=== PATIENT | male | born 1970 | race Caucasian/White ===

== ENCOUNTER → 2018-10-01 | Outpatient (CLI) | payer OTHER, MEDICARE ==
[2018-10-01 15:04] VITALS: BP 161/92; PULSE 48; TEMP 98.1; BMI 36.6
--- NOTE | 2018-10-01 15:48 | P.HPBAR ---
Bariatric H&P - History & Physicial H&P Date: 10/01/18 History & Physicial: Visit/CC: panniculectomy consult Patient initial contact: Initial weight: 147.418 kg Initial weight in pounds: 325.00 Height: 5 ft 11 in Initial BMI: 45.3 Last weight: Current weight: 119.295 kg Current weight in pounds: 263.00 Current BMI: 36.6 [place] body weight (based on NIH guidelines): 78.018 kg Excess body weight loss: 40.5% The patient is a 48 year-old M who presents for Bariatric Assessment. HPI: Highest 325 pounds. He has history of umbilical hernia surgery. Never had a weight loss procedure on his own. He has lost weight on his own. He is working out. He reports back. Current weight 263 pounds. His lowest 223 pounds the last 3 years. ABDOMEN: Has assymmetric fat distribution of the of the right chest wall. Pannus of 10-pounds. ASSESSMENT: 1. Pannicultis PLAN: 1. Nystatin powder 2. CT scan of abdomen of abdominal wall tumor, deep subcutaneous. Past Medical History Past Medical History: GERD/Reflux, Hypertension Additional Past Medical History / Comment(s): vertigo, white brain matter disease History of Any Multi-Drug Resistant Organisms: None Reported Past Surgical History: Hernia Repair Additional Past Surgical History / Comment(s): Umbilical hernia repair, right shoulder arthroscopy (arthritis/bone spurs), right knee meniscus surgery, deviated septum procedure in office d/t nose bleed, colonoscopy x3 (has this performed q5 years d/t precancerous polyps). Past Anesthesia/Blood Transfusion Reactions: No Reported Reaction, Motion Sickness Additional Past Anesthesia/Blood Transfusion Reaction / Comm: No blood transfusion to date, Smoking Status: Former smoker - Past Family History Mother Additional Family Medical History / Comment(s): hypoglycemia, dizzy spells, Father Family Medical History: Diabetes Mellitus Additional Family Medical History / Comment(s): Type 2 DM, Sister(s) Additional Family Medical History / Comment(s): sister #1: Chrohn's Disease. Sister #2,3,&4: stomach problems Surgical - Exam Vital Signs Temp Pulse BP 98.1 F 48 L 161/92 10/01/18 14:52 10/01/18 14:52 10/01/18 14:52 Bariatric Checklist Checklist: Plan: Checklist: EGD: 1. Hiatal hernia: 2. H. Pylori: HgbA1c: Vitamin D: Smoking: Former smoker Primary care physician referral: [facility] Psychiatry clearance: Cardiology clearance: Sleep study: Diet journal: VTE risk score: VTE risk level: Rehab needs at discharge:
== END | disposition home or self-care (01) ==
LOC: BARWHC3 14:07
PROVIDERS: ATTEND Surgery Plastic and Reconstructive Surgery
DX: M79.3 Panniculitis, unspecified (principal); Z87.891 Personal history of nicotine dependence; Z98.890 Other specified postprocedural states
CPT/HCPCS: 99201

== ENCOUNTER → 2018-10-10 | Outpatient (CLI) | payer OTHER, MEDICARE ==
--- NOTE | 2018-10-10 14:10 | CT ---
EXAMINATION TYPE: CT abdomen wo con DATE OF EXAM: 10/10/2018 COMPARISON: None HISTORY: Pre op sleeve CT DLP: 1038 mGycm Automated exposure control for dose reduction was used. TECHNIQUE: Helical acquisition of images was performed from the lung bases through the top of iliac crest to include entire abdomen. CONTRAST: Performed without Oral Contrast and without IV contrast. FINDINGS: In length of intravenous and oral contrast limit evaluation of both the hollow and solid vi scera. LUNG BASES: There is a left lower lobe pulmonary nodule measuring 8 mm. LIVER/GB: Unremarkable unenhanced morphology of the liver. No radiopaque calculi within the gallbladd er. PANCREAS: No significant abnormality is seen. SPLEEN: Splenomegaly is incidentally noted with the greatest longitudinal dimension of the spleen rambo suring 16.2 cm. ADRENALS: No focal thickening or nodularity. KIDNEYS: Retroaortic left renal vein is incidentally noted. Kidneys demonstrate no evidence of hydron ephrosis nor nephrolithiasis. BOWEL: No dilated large or small bowel. Large amount of debris within the stomach from ingested mate rial. LYMPH NODES: No significant abnormality is appreciated. OSSEOUS STRUCTURES: Mild multilevel degenerative changes of the spine. FREE AIR: No free air is visualized. IMPRESSION: 1. THERE IS A SOLID 8 MM LEFT LOWER LOBE PULMONARY NODULE. CT OF THE CHEST IS RECOMMENDED FOR FULL EV ALUATION. 2. INCIDENTALLY NOTED SPLENOMEGALY.
== END | disposition home or self-care (01) ==
LOC: RADCTMAIN 13:12
PROVIDERS: ATTEND Surgery Plastic and Reconstructive Surgery
DX: R16.1 Splenomegaly, not elsewhere classified (principal)
CPT/HCPCS: 74150

== ENCOUNTER → 2020-05-04 | Outpatient (CLI) | payer MEDICARE, OTHER ==
[2020-05-04 15:25] VITALS: BP 148/89; PULSE 72; RESP 18; TEMP 98.7; BMI 44.6
--- NOTE | 2020-05-04 16:04 | P.HPBAR ---
Bariatric H&P - History & Physicial H&P Date: 05/04/20 History & Physicial: Visit/CC: follow up Patient initial contact: Initial weight: 147.418 kg Initial weight in pounds: 325.00 Height: 5 ft 11 in Initial BMI: 45.3 Last weight: Current weight: 145.15 kg Current weight in pounds: 320.00 Current BMI: 44.6 [place] body weight (based on NIH guidelines): 78.018 kg Excess body weight loss: 3.2% The patient is a 50 year-old M who presents for Bariatric Assessment. DATE OF SERVICE: 05/04/2020 CHIEF COMPLAINT: Morbid obesity HISTORY OF PRESENT ILLNESS: Christo Cortes is a 50-year-old male who comes at his highest weight since evaluation at the bariatric center. He presents for brenna luation for weight loss. He is seeing a lung doctor. He comes in with left lower quadrant pain which is new. He reports troubles with swallowing. He is pending medical supervised weight loss surveillance. At height of 5 foot, 11 inches, ideal body weight is 178 pounds. His highest weight was 325 pounds, BMI 45.4. Today he comes in 319 pounds from 301 pounds, 4 months ago. He has gained 18 pounds in 4 months. His body mass index is 44.6. PAST MEDICAL HISTORY: 1. Morbid obesity due to excess calories, BMI 45.4 2. Hyperlipidemia 3. Depressive disorder 4. Hypertensive heart disease 5. Vertigo 6. White brain matter disease 7. Anxiety 8. Panniculitis. 9. Coronary artery disease PAST SURGICAL HISTORY: 1. Umbilical hernia repair 2. Right shoulder arthroscopy 3. Right knee surgery 4. Colonoscopy 5. Heart catheterization. 6. Left shoulder arthroscopy 7. Deviated septum repair 8. Bilateral hand surgery MEDICATIONS: Home Medications Medication Instructions Recorded Confirmed Omeprazole [PriLOSEC] 40 mg PO DAILY 10/01/18 10/01/18 buPROPion XL [Wellbutrin XL] 150 mg PO DAILY 10/01/18 10/01/18 Aspirin 81 mg PO DAILY 10/13/18 10/13/18 Atorvastatin [Lipitor] 10 mg PO DAILY 10/13/18 10/13/18 Cholecalciferol (Vitamin D3) 2,000 unit PO DAILY 10/13/18 10/13/18 [Vitamin D3] EPINEPHrine (Auto Inject) [Epipen] 1 injection IM DIRECTED 10/13/18 10/13/18 Escitalopram [Lexapro] 10 mg PO DAILY 10/13/18 10/13/18 Gemfibrozil [Lopid] 600 mg PO DAILY 10/13/18 10/13/18 LORazepam [Ativan] 0.5 mg PO DAILY 10/13/18 10/13/18 prednisoLONE ACETATE 1% OPHTH 1 drop BOTH EYES QID 10/13/18 10/13/18 [Pred Forte 1%] Previous Rx's Medication Instructions Recorded Nystatin 100,000 Unit/gm Powd 1 applic TOPICAL BID #60 powder 10/01/18 [Mycostatin Powder] ALLERGIES: Denies. SOCIAL HISTORY: Past tobacco use FAMILY HISTORY: Pertinent for morbid obesity. REVIEW OF SYSTEMS: CONSTITUTIONAL: Highest weight of 325 pounds. Highest body mass index of 45.4. [place] body weight of 178 pounds of 5 foot 11. MUSCULOSKELETAL: Reports lower back pain from weight of pannus. GASTROINTESTINAL: Has gastroesophageal reflux disease is resolved. No reports of dumping syndrome. PSYCH: Has anxiety and depression CARDIOVASCULAR: Has hypertensive medications. Medications for dyslipidemia. Past heart catheterization with stent HEENT: No dysphagia. No troubles with vision or hearing. HEMATOLOGIC: No DVTs. Also has history of lupus in his family. ENDOCRINE: Denies any diabetes. No thyroid disorder. CARDIOVASCULAR: Denies any heart attack or recent chest pain. RESPIRATORY: Has obstructive sleep apnea. No reports of asthma. NEURO: Denies any stroke or seizure disorders. SKIN: Chronic panniculitis. No skin cancer. PHYSICAL EXAM: VITAL SIGNS: 5 foot 11, 319 pounds. Body mass index is 44.6 GENERAL: Well-developed male in no acute distress. ABDOMEN: Soft, non-tender, non-distended. HEENT: Hears conversational speech. Moist buccal mucosa. Extraocular movements were grossly intact. No nasal drainage. NECK: Supple without lymphadenopathy. CHEST: Unlabored respirations, equal bilateral excursions. CARDIOVASCULAR: Regular rate and rhythm. 2+ radial pulses. MUSCULOSKELETAL: Bilateral lower extremity edema with 1+. No clubbing cyanosis or edema. NEURO: No focal or lateralizing signs. Cranial nerves II-12 grossly intact. PSYCH: Appropriate affect. Alert and oriented to person, place, and time. SKIN: Well perfused. Good skin turgor. LABS: Reviewed. Platelets are low. Sodium is elevated. Triglycerides is elevated. EKG: Normal sinus rhythm. ASSESSMENT: 1. Morbid obesity due to excess calories, BMI 45.4 2. Hyperlipidemia 3. Depressive disorder 4. Hypertensive heart disease 5. Vertigo 6. White brain matter disease 7. Anxiety 8. Panniculitis. 9. Coronary artery disease 10. Thrombocytopenia 11. Hypernatremia 12. Left lower abdominal pain PLAN: 1. Recommend upper endoscopy. 2. Recommend food diary journal. 3. He has left lower quadrant pain with history of polyps. He is due for colonoscopy. Past Medical History Past Medical History: GERD/Reflux, Hypertension Additional Past Medical History / Comment(s): vertigo, white brain matter disease History of Any Multi-Drug Resistant Organisms: None Reported Past Surgical History: Heart Catheterization, Hernia Repair, Orthopedic Surgery Additional Past Surgical History / Comment(s): Umbilical hernia repair, right and left shoulder arthroscopy (arthritis/bone spurs), right knee meniscus surgery, deviated septum procedure in office d/t nose bleed, colonoscopy x3 (has this performed q5 years d/t precancerous polyps), right and left hand surgery Past Anesthesia/Blood Transfusion Reactions: No Reported Reaction, Motion Sickness Additional Past Anesthesia/Blood Transfusion Reaction / Comm: No blood transfusion to date, Past Psychological History: Anxiety, Depression Additional Psychological History / Comment(s): Takes Wellbutrin daily Smoking Status: Former smoker Past Alcohol Use History: Occasional Additional Past Alcohol Use History / Comment(s): smoked beginning at age 18 to early 30's, smoked 1-3 packs/day. Past Drug Use History: None Reported - Past Family History Mother Additional Family Medical History / Comment(s): hypoglycemia, dizzy spells, Father Family Medical History: Diabetes Mellitus Additional Family Medical History / Comment(s): Type 2 DM, Sister(s) Additional Family Medical History / Comment(s): sister #1: Chrohn's Disease. Sister #2,3,&4: stomach problems Surgical - Exam Vital Signs Temp Pulse Resp BP 98.7 F 72 18 148/89 05/04/20 15:18 05/04/20 15:18 05/04/20 15:18 05/04/20 15:18 Bariatric Checklist Checklist: Plan: Checklist: EGD: 1. Hiatal hernia: 2. H. Pylori: HgbA1c: Vitamin D: Smoking: Former smoker Primary care physician referral: [facility] Psychiatry clearance: Cardiology clearance: Sleep study: Diet journal: VTE risk score: VTE risk level: Rehab needs at discharge:
== END | disposition home or self-care (01) ==
LOC: BARWHC3 14:57
PROVIDERS: ATTEND Surgery Plastic and Reconstructive Surgery
DX: E66.01 Morbid (severe) obesity due to excess calories (principal); E78.5 Hyperlipidemia, unspecified; F32.9 Major depressive disorder, single episode, unspecified; I11.9 Hypertensive heart disease without heart failure; R42 Dizziness and giddiness; F41.9 Anxiety disorder, unspecified; M79.3 Panniculitis, unspecified; I25.10 Atherosclerotic heart disease of native coronary artery without angina pectoris; D69.6 Thrombocytopenia, unspecified; E87.0 Hyperosmolality and hypernatremia; R10.30 Lower abdominal pain, unspecified; Z79.82 Long term (current) use of aspirin; Z79.899 Other long term (current) drug therapy; Z79.891 Long term (current) use of opiate analgesic
CPT/HCPCS: 99211

== ENCOUNTER 2020-06-06 08:38 | Day surgery (SDC) | payer MEDICARE ==
[2020-06-01 12:00] VITALS: BMI 44.1
--- NOTE | 2020-06-06 05:47 | P.GSHP ---
History of Present Illness H&P Date: 06/06/20 CHIEF COMPLAINT: GERD and colon screen HISTORY OF PRESENT ILLNESS: The patient is a 67-year-old male who presents with dysphagia, gastroesophageal reflux disease and need for colon screen with history of polyps. Upper and lower endoscopy were offered for further evaluation and management. PAST MEDICAL HISTORY: Please see list. PAST SURGICAL HISTORY: Please see list. MEDICATIONS: Please see list. ALLERGIES: Please see list. SOCIAL HISTORY: No illicit drug use FAMILY HISTORY: No reports of Crohn disease or ulcerative colitis. REVIEW OF ORGAN SYSTEMS: CONSTITUTIONAL: No reports of fevers or chills. GI: Denies any blood in stools or constipation. PHYSICAL EXAM: VITAL SIGNS: Stable GENERAL: Well-developed pleasant in no acute distress. HEENT: No scleral icterus. Extraocular movements grossly intact. Moist buccal mucosa. NECK: Supple without lymphadenopathy. CHEST: Unlabored respirations. Equal bilateral excursions. CARDIOVASCULAR: Regular rate and rhythm. Distal 2+ pulses. ABDOMEN: Soft, nondistended. MUSCULOSKELETAL: No clubbing, cyanosis, or edema. ASSESSMENT: 1. Gastroesophageal reflux disease 2. Colon screen. 3. Dysphagia 4. History of polyps PLAN: 1. Recommend proceeding with an upper and lower endoscopy Past Medical History Past Medical History: GERD/Reflux, Hypertension Additional Past Medical History / Comment(s): vertigo, white brain matter disease History of Any Multi-Drug Resistant Organisms: None Reported Past Surgical History: Heart Catheterization, Hernia Repair, Orthopedic Surgery Additional Past Surgical History / Comment(s): Umbilical hernia repair, right and left shoulder arthroscopy (arthritis/bone spurs), right knee meniscus surgery, deviated septum procedure in office d/t nose bleed, colonoscopy x3 (has this performed q5 years d/t precancerous polyps), right and left hand surgery Past Anesthesia/Blood Transfusion Reactions: No Reported Reaction, Motion Sickness Additional Past Anesthesia/Blood Transfusion Reaction / Comment(s): No blood transfusion to date, Smoking Status: Former smoker - Past Family History Mother Additional Family Medical History / Comment(s): hypoglycemia, dizzy spells, Father Family Medical History: Diabetes Mellitus Additional Family Medical History / Comment(s): Type 2 DM, Sister(s) Additional Family Medical History / Comment(s): sister #1: Chrohn's Disease. Sister #2,3,&4: stomach problems Medications and Allergies Home Medications Medication Instructions Recorded Confirmed Type Omeprazole [PriLOSEC] 20 mg PO DAILY 10/01/18 06/01/20 History buPROPion XL [Wellbutrin XL] 300 mg PO DAILY 10/01/18 06/01/20 History EPINEPHrine (Auto Inject) [Epipen] 1 injection IM DIRECTED 10/13/18 06/01/20 History lisinopriL [Zestril] 20 mg PO DAILY 12/23/19 06/01/20 History Allergies Allergy/AdvReac Type Severity Reaction Status Date / Time bee venom protein (honey bee) Allergy Unknown Verified 06/01/20 11:56
[~2020-06-06 08:38] MED LIST: LACTATED RINGERS 1,000 ML IV SCH
[2020-06-06 09:32] VITALS: RESP 16; TEMP 97.5
[2020-06-06] MEDS ORDERED: LIDOCAINE 1% (10MG/ML) FOR IV START INTRADERMA ONE (09:43)
[2020-06-06] MEDS ORDERED: PROPOFOL 10 MG/ML 20 ML VIAL IV ONE (10:05)
--- NOTE | 2020-06-06 10:20 | P.PCN ---
Date of Procedure: 06/06/20 Description of Procedure: PREOPERATIVE DIAGNOSIS: Gastroesophageal reflux disease. Morbid obesity. POSTOPERATIVE DIAGNOSIS: Morbid obesity. Gastritis. Gastroesophageal reflux disease. OPERATION: Esophagogastroduodenoscopy with biopsies along antrum. SURGEON: Kylie Montemayor MD ANESTHESIA: MAC. INDICATIONS: The patient is a 50-year-old female who presents with a history of reflux disease. Benefits and risks of the procedure were described. Informed consent was obtained. DESCRIPTION: The patient was brought into the endoscopy suite and laid in the left lateral decubitus position. An Olympus gastroscope was passed along the posterior oropharynx down to the distal esophagus where the squamocolumnar junction was encountered at 40 cm from the incisors. The stomach was entered and no bile reflux was found. Additional findings are listed below. Biopsies with cold forceps were obtained of the antrum. The first through third portion of the duodenum was examined and unremarkable. Retroflexion of the scope confirmed Hill grade 2 lower esophageal valve. The squamocolumnar junction demonstrated LA grade A erosive esophagitis. The stomach was desufflated. The patient tolerated the procedure well. FINDINGS: Squamocolumnar junction 40 cm from the incisors. Diaphragmatic hiatus at 40 cm. Hill grade 2 lower esophageal valve. LA grade A erosive esophagitis. No active duodenitis. Chronic gastritis RECOMMENDATIONS: Upper endoscopy as needed.
--- NOTE | 2020-06-06 10:45 | P.PCN ---
Date of Procedure: 06/06/20 Description of Procedure: PREOPERATIVE DIAGNOSIS: Personal history of colon polyps Family history colon polyps Colonoscopy screening POSTOPERATIVE DIAGNOSIS: Ascending colon polyp Mid transverse colon polyp Internal hemorrhoids, grade 2 OPERATION: Colonoscopy to the ileocecal valve and appendiceal orifice, cecum Colonoscopy with cold forceps biopsy SURGEON: Kylie Montemayor MD. ANESTHESIA: MAC. INDICATIONS: The patient is an 50-year-old male who presents family history of colon polyps and personal history of colon polyps. Last colonoscopy over 5 years. Benefits and risks were described and informed consent was obtained. DESCRIPTION OF PROCEDURE: The patient had undergone Sutab prep. The patient had been brought into the operating room and laid in the left lateral decubitus position. After adequate intravenous sedation, the rectum was examined with 2% lidocaine jelly. The prostate was unremarkable. No external hemorrhoids were encountered. The rectal tone was within normal limits. No lesions were palpated in the rectal vault. An Olympus colonoscope was advanced until the cecum, ileocecal valve and appendiceal orifice were clearly viewed. The prep was good. No sigmoid diverticulosis was encountered. Colonic polyps were found and removed. No evidence of focal colitis was found. Retroflexion of the scope demonstrated grade 2 internal hemorrhoids without active bleeding or inflammation. The colon was desufflated. The patient had tolerated the procedure well. Withdrawal time was over 6 minutes. FINDINGS: Aronchick preparation quality scale 2 (1-5) Internal hemorrhoids, grade 2 No external hemorrhoids No arteriovenous malformations. No sigmoid diverticulosis Removal of 2 polyps: - Cold forceps biopsy at mid transverse colon, 4 mm polyp. - Cold forceps biopsy at distal ascending colon, 5 mm polyp. No focal colitis. RECOMMENDATIONS: Repeat colonoscopy in 3 years, 2023 Plan - Discharge Summary Discharge Rx Participant: No New Discharge Prescriptions: Continue buPROPion XL [Wellbutrin XL] 300 mg PO DAILY Omeprazole [PriLOSEC] 20 mg PO DAILY EPINEPHrine (Auto Inject) [Epipen] 1 injection IM DIRECTED lisinopriL [Zestril] 20 mg PO DAILY Discharge Medication List Omeprazole [PriLOSEC] 20 mg PO DAILY 10/01/18 [History] buPROPion XL [Wellbutrin XL] 300 mg PO DAILY 10/01/18 [History] EPINEPHrine (Auto Inject) [Epipen] 1 injection IM DIRECTED 10/13/18 [History] lisinopriL [Zestril] 20 mg PO DAILY 12/23/19 [History] Follow up Appointment(s)/Referral(s): [facility] [NON-STAFF] - 06/15/20 Patient Instructions/Handouts: Colorectal Polyps (DC), *Surgery [facility] - (Anesthesia) Endoscopy Discharge Instructions, Colonoscopy (DC) Activity/Diet/Wound Care/Special Instructions: Repeat colonoscopy in 3 years, 2023 Discharge Disposition: HOME SELF-CARE
[2020-06-06 10:58] VITALS: BP 115/69
[2020-06-06 11:12] VITALS: PULSE 67
== END 2020-06-06 11:22 | disposition home or self-care (01) ==
LOC: ORWHC2ENDO 08:38
PROVIDERS: ATTEND Surgery Plastic and Reconstructive Surgery
DX: Z12.11 Encounter for screening for malignant neoplasm of colon (principal); K63.5 Polyp of colon; K64.1 Second degree hemorrhoids; K29.50 Unspecified chronic gastritis without bleeding; K21.00 Gastro-esophageal reflux disease with esophagitis, without bleeding; K22.10 Ulcer of esophagus without bleeding; E66.01 Morbid (severe) obesity due to excess calories; I10 Essential (primary) hypertension; R90.82 White matter disease, unspecified; M19.012 Primary osteoarthritis, left shoulder; M19.011 Primary osteoarthritis, right shoulder; Z68.41 Body mass index [BMI] 40.0-44.9, adult; Z86.010 Personal history of colon polyps; Z98.890 Other specified postprocedural states; Z87.898 Personal history of other specified conditions; Z87.891 Personal history of nicotine dependence; Z79.899 Other long term (current) drug therapy; Z91.030 Bee allergy status; Z83.71 Family history of colonic polyps; Z83.49 Family history of other endocrine, nutritional and metabolic diseases; Z82.0 Family history of epilepsy and other diseases of the nervous system; Z83.3 Family history of diabetes mellitus; Z83.79 Family history of other diseases of the digestive system
CPT/HCPCS: 88305; 45380; 43239; J2704

== ENCOUNTER → 2020-06-15 | Outpatient (CLI) | payer MEDICARE ==
[2020-06-15 15:51] VITALS: BP 154/103; PULSE 71; RESP 18; TEMP 98.4; BMI 44.9
--- NOTE | 2020-06-15 16:19 | P.PN ---
Subjective Progress Note Date: 06/15/20 DATE OF SERVICE: 06/15/2020 CHIEF COMPLAINT: Morbid obesity HISTORY OF PRESENT ILLNESS: Christo Cortes is a 50-year-old male with lifelong history of morbid obesity. He has been undergoing medical supervised weight loss. He has over 60 pound weight gain in 8 months. No reports of nausea or vomiting. He has worsening gastroesophageal reflux disease. He presents here for evaluation of morbid obesity. At height of 5 foot, 11 inches, ideal body weight is 178 pounds. His highest weight was 325 pounds, BMI 45.4. Today he comes in 321 pounds from 319 pounds, 1 month ago. He has gained 2 pounds in 1 month. His body mass index is 44.9. He is 143 pounds overweight. PAST MEDICAL HISTORY: 1. Morbid obesity due to excess calories, BMI 45.4 2. Hyperlipidemia 3. Depressive disorder 4. Hypertensive heart disease 5. Vertigo 6. White brain matter disease 7. Anxiety 8. Panniculitis. 9. Coronary artery disease PAST SURGICAL HISTORY: 1. Umbilical hernia repair 2. Right shoulder arthroscopy 3. Right knee surgery 4. Colonoscopy 5. Heart catheterization. 6. Left shoulder arthroscopy 7. Deviated septum repair 8. Bilateral hand surgery MEDICATIONS: Home Medications Medication Instructions Recorded Confirmed Omeprazole [PriLOSEC] 20 mg PO DAILY 10/01/18 06/20/20 buPROPion XL [Wellbutrin XL] 300 mg PO DAILY 10/01/18 06/20/20 EPINEPHrine (Auto Inject) [Epipen] 1 injection IM DIRECTED 10/13/18 06/20/20 lisinopriL [Zestril] 20 mg PO DAILY 12/23/19 06/20/20 ALLERGIES: Denies. SOCIAL HISTORY: Past tobacco use FAMILY HISTORY: Pertinent for morbid obesity. REVIEW OF SYSTEMS: CONSTITUTIONAL: Highest weight of 325 pounds. Highest body mass index of 45.4. [place] body weight of 178 pounds of 5 foot 11. MUSCULOSKELETAL: Reports lower back pain from weight of pannus. GASTROINTESTINAL: Has gastroesophageal reflux disease. No reports of dumping syndrome. PSYCH: Has anxiety and depression CARDIOVASCULAR: Has hypertensive medications. Medications for dyslipidemia. Past heart catheterization with stent HEENT: No dysphagia. No troubles with vision or hearing. HEMATOLOGIC: No DVTs. Also has history of lupus in his family. ENDOCRINE: Denies any diabetes. No thyroid disorder. CARDIOVASCULAR: Denies any heart attack or recent chest pain. RESPIRATORY: Has obstructive sleep apnea. No reports of asthma. NEURO: Denies any stroke or seizure disorders. GENITOURINARY: Has chronic renal insufficiency. SKIN: Chronic panniculitis. No skin cancer. PHYSICAL EXAM: VITAL SIGNS: 5 foot 11, 321 pounds. Body mass index is 44.9 Vital Signs Temp 98.4 F 06/15/20 15:43 Pulse 71 06/15/20 15:43 Resp 18 06/15/20 15:43 BP 154/103 06/15/20 15:43 Pulse Ox GENERAL: Well-developed male in no acute distress. ABDOMEN: Soft, non-tender, non-distended. HEENT: Hears conversational speech. Moist buccal mucosa. Extraocular movements were grossly intact. No nasal drainage. NECK: Supple without lymphadenopathy. CHEST: Unlabored respirations, equal bilateral excursions. CARDIOVASCULAR: Regular rate and rhythm. 2+ radial pulses. MUSCULOSKELETAL: Bilateral lower extremity edema with 1+. No clubbing cyanosis or edema. NEURO: No focal or lateralizing signs. Cranial nerves II-12 grossly intact. PSYCH: Appropriate affect. Alert and oriented to person, place, and time. SKIN: Well perfused. Good skin turgor. EGD FINDINGS: Squamocolumnar junction 40 cm from the incisors. Diaphragmatic hiatus at 40 cm. Hill grade 2 lower esophageal valve. LA grade A erosive esophagitis. No active duodenitis. Chronic gastritis COLON FINDINGS: Aronchick preparation quality scale 2 (1-5) Internal hemorrhoids, grade 2 No external hemorrhoids No arteriovenous malformations. No sigmoid diverticulosis Removal of 2 polyps: - Cold forceps biopsy at mid transverse colon, 4 mm polyp. - Cold forceps biopsy at distal ascending colon, 5 mm polyp. No focal colitis. Final Pathologic Diagnosis A. GASTRIC ANTRUM, BIOPSY: Minimal chronic gastritis. Helicobacter pylori organisms are not identified on routine H+E sections. B. MID TRANSVERSE COLON, BIOPSY: Hyperplastic polyp. C. ASCENDING COLON, BIOPSY: Serrated polyp most consistent with hyperplastic polyp. ASSESSMENT: 1. Morbid obesity due to excess calories, BMI 45.4 2. Hyperlipidemia 3. Depressive disorder 4. Hypertensive heart disease 5. Vertigo 6. White brain matter disease 7. Anxiety 8. Panniculitis. 9. Coronary artery disease 10. Thrombocytopenia 11. Hypernatremia 12. Left lower abdominal pain 13. Dietary surveillance and counseling 14. Colon polyps 15. Chronic gastritis 16. Chronic renal insufficiency PLAN: 1. He has moderate weight gain almost in 1 year. Recommend modified diet for weight gain. 2. Bariatric options between a sleeve, band and a Richa-en-Y gastric bypass were reviewed in detail. The patient elected for gastric bypass. Robotic assisted approach described. 3. An 8 page second-generation bariatric consent form was reviewed in detail including potential of bleeding, infection, leaks, adequate weight loss, nutritional deficiencies which the patient demonstrated understanding of the risks. 4. A 2 week high-protein low caloric 800 kcal diet described to address hepatomegaly. 5. Preoperative labs including complete metabolic panel and CBC with type and screen recommended. 6. DVT prophylaxis per [place] [facility]. 7. Antibiotic prophylaxis. 8. Inpatient hospitalization anticipated for more than 2 nights. 9. All questions and concerns were addressed with the patient. 10. He has thrombocytopenia where he is at risk for bleeding and also elevated risk for complications. 11. He has history of elevated creatinine with chronic renal disease on lisinopril. Recommend recheck of creatinine and kidney function on lisinopril. Objective - Vital Signs Vital signs: Vital Signs Temp 98.4 F 06/15/20 15:43 Pulse 71 06/15/20 15:43 Resp 18 06/15/20 15:43 BP 154/103 06/15/20 15:43 Pulse Ox Intake & Output 06/14/20 06/15/20 06/15/20 18:59 06:59 18:59 Weight 146.057 kg
== END ==
LOC: BARWHC3 14:56
PROVIDERS: ATTEND Surgery Plastic and Reconstructive Surgery
DX: E66.01 Morbid (severe) obesity due to excess calories (principal); D69.6 Thrombocytopenia, unspecified; E78.5 Hyperlipidemia, unspecified; F32.9 Major depressive disorder, single episode, unspecified; F41.9 Anxiety disorder, unspecified; R42 Dizziness and giddiness; M79.3 Panniculitis, unspecified; I25.10 Atherosclerotic heart disease of native coronary artery without angina pectoris; R10.32 Left lower quadrant pain; K29.50 Unspecified chronic gastritis without bleeding; K63.5 Polyp of colon; Z71.3 Dietary counseling and surveillance; E87.0 Hyperosmolality and hypernatremia; I67.89 Other cerebrovascular disease; R90.82 White matter disease, unspecified; Z87.891 Personal history of nicotine dependence; Z68.42 Body mass index [BMI] 45.0-49.9, adult
CPT/HCPCS: 99211

== ENCOUNTER → 2020-06-20 | Outpatient (CLI) | payer MEDICARE ==
[2020-06-20 08:50] VITALS: BMI 45.2
== END ==
LOC: BARWHC3 08:13
PROVIDERS: ATTEND Surgery Plastic and Reconstructive Surgery
DX: E66.01 Morbid (severe) obesity due to excess calories (principal); Z68.45 Body mass index [BMI] 70 or greater, adult; Z71.3 Dietary counseling and surveillance; Z98.84 Bariatric surgery status; K21.9 Gastro-esophageal reflux disease without esophagitis; I10 Essential (primary) hypertension
CPT/HCPCS: 97804

== ENCOUNTER 2021-01-09 14:45 | Inpatient (IN) | payer MEDICARE ==
[2021-01-13] MEDS ORDERED: ceFAZolin 3 GM in SODIUM CHLORIDE 0.9% 100 ML IVPB PRN (05:00)
[2021-01-13] MEDS ORDERED: DEXAMETHASONE SOD PHOSPHATE 4 MG/ML 1 ML VIAL IV ONE (05:50)
[2021-01-13] MEDS ORDERED: ONDANSETRON 4 MG/2 ML VIAL IVP ONE (05:50)
[2021-01-13] MEDS ORDERED: SCOPOLAMINE 1.5MG/72HR PATCH TRANSDERM ONE (05:50)
[2021-01-13] MEDS ORDERED: MIDAZOLAM 2 MG/2 ML VIAL IV PRN (05:50)
[2021-01-13] MEDS ORDERED: LACTATED RINGERS 1,000 ML IV ONE ×3 (06:26→13:00)
[2021-01-13] MEDS ORDERED: ACETAMINOPHEN TAB 500 MG TAB PO STA (06:37)
[2021-01-13] MEDS ORDERED: TAMSULOSIN 0.4 MG CAP.ER.24H PO STA (06:37)
[2021-01-13] MEDS ORDERED: GABAPENTIN 300 MG CAP PO STA (06:37)
--- NOTE | 2021-01-13 06:42 | P.GSHP ---
History of Present Illness H&P Date: 01/13/21 DATE OF SERVICE: 06/15/2020 CHIEF COMPLAINT: Morbid obesity HISTORY OF PRESENT ILLNESS: Christo Cortes is a 50-year-old male with lifelong history of morbid obesity. He has completed medical supervised weight loss. He has worsening gastroesophageal reflux disease and is looking into the gastric bypassHe presents here for evaluation of morbid obesity. At height of 5 foot, 11 inches, ideal body weight is 178 pounds. His highest weight was 325 pounds, BMI 45.4. He is 143 pounds overweight. PAST MEDICAL HISTORY: 1. Morbid obesity due to excess calories, BMI 45.4 2. Hyperlipidemia 3. Depressive disorder 4. Hypertensive heart disease 5. Vertigo 6. White brain matter disease 7. Anxiety 8. Panniculitis. 9. Coronary artery disease PAST SURGICAL HISTORY: 1. Umbilical hernia repair 2. Right shoulder arthroscopy 3. Right knee surgery 4. Colonoscopy 5. Heart catheterization. 6. Left shoulder arthroscopy 7. Deviated septum repair 8. Bilateral hand surgery MEDICATIONS: Home Medications Medication Instructions Recorded Confirmed Omeprazole [PriLOSEC] 20 mg PO DAILY 10/01/18 06/20/20 buPROPion XL [Wellbutrin XL] 300 mg PO DAILY 10/01/18 06/20/20 EPINEPHrine (Auto Inject) [Epipen] 1 injection IM DIRECTED 10/13/18 06/20/20 lisinopriL [Zestril] 20 mg PO DAILY 12/23/19 06/20/20 ALLERGIES: Denies. SOCIAL HISTORY: Past tobacco use FAMILY HISTORY: Pertinent for morbid obesity. REVIEW OF SYSTEMS: CONSTITUTIONAL: Highest weight of 325 pounds. Highest body mass index of 45.4. [place] body weight of 178 pounds of 5 foot 11. MUSCULOSKELETAL: Reports lower back pain from weight of pannus. GASTROINTESTINAL: Has gastroesophageal reflux disease. No reports of dumping syndrome. PSYCH: Has anxiety and depression CARDIOVASCULAR: Has hypertensive medications. Medications for dyslipidemia. Past heart catheterization with stent HEENT: No dysphagia. No troubles with vision or hearing. HEMATOLOGIC: No DVTs. Also has history of lupus in his family. ENDOCRINE: Denies any diabetes. No thyroid disorder. CARDIOVASCULAR: Denies any heart attack or recent chest pain. RESPIRATORY: Has obstructive sleep apnea. No reports of asthma. NEURO: Denies any stroke or seizure disorders. GENITOURINARY: Has chronic renal insufficiency. SKIN: Chronic panniculitis. No skin cancer. PHYSICAL EXAM: VITAL SIGNS: 5 foot 11, 321 pounds. Body mass index is 44.9 GENERAL: Well-developed male in no acute distress. ABDOMEN: Soft, non-tender, non-distended. HEENT: Hears conversational speech. Moist buccal mucosa. Extraocular movements were grossly intact. No nasal drainage. NECK: Supple without lymphadenopathy. CHEST: Unlabored respirations, equal bilateral excursions. CARDIOVASCULAR: Regular rate and rhythm. 2+ radial pulses. MUSCULOSKELETAL: Bilateral lower extremity edema with 1+. No clubbing cyanosis or edema. NEURO: No focal or lateralizing signs. Cranial nerves II-12 grossly intact. PSYCH: Appropriate affect. Alert and oriented to person, place, and time. SKIN: Well perfused. Good skin turgor. ASSESSMENT: 1. Morbid obesity due to excess calories, BMI 45.4 2. Hyperlipidemia 3. Depressive disorder 4. Hypertensive heart disease 5. Vertigo 6. White brain matter disease 7. Anxiety 8. Panniculitis. 9. Coronary artery disease 10. Thrombocytopenia 11. Hypernatremia 12. Left lower abdominal pain 13. Dietary surveillance and counseling 14. Colon polyps 15. Chronic gastritis 16. Chronic renal insufficiency PLAN: 1. He has history of elevated creatinine with chronic renal disease on lisinopril. Recommend recheck of creatinine and kidney function on lisinopr 2. Bariatric options between a sleeve, band and a Richa-en-Y gastric bypass were reviewed in detail. The patient elected for gastric bypass. Robotic assisted approach described. 3. An 8 page second-generation bariatric consent form was reviewed in detail including potential of bleeding, infection, leaks, adequate weight loss, nutritional deficiencies which the patient demonstrated understanding of the risks. 4. A 2 week high-protein low caloric 800 kcal diet described to address hepatomegaly. 5. Preoperative labs including complete metabolic panel and CBC with type and screen recommended. 6. DVT prophylaxis per [place] [facility]. 7. Antibiotic prophylaxis. 8. Inpatient hospitalization anticipated for more than 2 nights. 9. All questions and concerns were addressed with the patient. 10. He has thrombocytopenia where he is at risk for bleeding and also elevated risk for complications. Past Medical History Past Medical History: GERD/Reflux, Hypertension, Memory Impairment, Sleep Apnea/CPAP/BIPAP Additional Past Medical History / Comment(s): White brain matter disease, short term memory issues. Vertigo. Hx COVID July 2020. CPAP use. History of Any Multi-Drug Resistant Organisms: None Reported Past Surgical History: Heart Catheterization, Hernia Repair, Orthopedic Surgery Additional Past Surgical History / Comment(s): Umbilical hernia repair, bilateral shoulder arthroscopy(arthritis/bone spurs), right knee meniscus surgery, deviated septum procedure in office d/t nose bleed, colonoscopy X3 (has this performed q5 years d/t precancerous polyps), bilateral hand surgery. Past Anesthesia/Blood Transfusion Reactions: No Reported Reaction Additional Past Anesthesia/Blood Transfusion Reaction / Comment(s): Vertigo. No blood transfusion to date. Past Psychological History: Anxiety, Depression Smoking Status: Former smoker Past Alcohol Use History: Occasional Additional Past Alcohol Use History / Comment(s): Smoked from age 18 to early 30's, smoked 1-3 ppd. Past Drug Use History: Marijuana Additional Drug Use History / Comment(s): Pt states has used Marijuana in the [place] but nothing recently. - Past Family History Mother Additional Family Medical History / Comment(s): Hypoglycemia, dizzy spells. Father Family Medical History: Diabetes Mellitus Additional Family Medical History / Comment(s): Type 2 DM. Sister(s) Additional Family Medical History / Comment(s): sister #1: Chrohn's Disease. Sister #2,3,&4: stomach problems Medications and Allergies Home Medications Medication Instructions Recorded Confirmed Type Omeprazole [PriLOSEC] 20 mg PO QAM 10/01/18 01/11/21 History buPROPion XL [Wellbutrin XL] 300 mg PO QAM 10/01/18 01/11/21 History lisinopriL [Zestril] 20 mg PO BID 12/23/19 01/11/21 History Allergies Allergy/AdvReac Type Severity Reaction Status Date / Time bee venom protein (honey bee) Allergy Unknown Verified 01/11/21 09:56 Surgical - Exam Vital Signs Temp Pulse Resp BP Pulse Ox 98.1 F 64 18 138/86 98 01/13/21 06:23 01/13/21 06:23 01/13/21 06:23 01/13/21 06:23 01/13/21 06:23
[2021-01-13] MEDS ORDERED: PANTOPRAZOLE 40 MG/10 ML VIAL IVP PRN (07:00)
[2021-01-13] MEDS ORDERED: CHLORHEXIDINE GLUCONATE 15 ML CUP MUCOUS MEM PRN (07:00)
[2021-01-13] MEDS ORDERED: ENOXAPARIN 40 MG/0.4 ML SYRINGE SQ PRN (07:00)
[2021-01-13 07:34] LABS: Basophils % (A) 0 %; Eosinophils # (A) 0.1 k/uL (0-0.7); Eosinophils % (A) 2 %; HCT 43.8 % (39.0-53.0); HGB 15.4 gm/dL (13.0-17.5); Lymphocytes # (A) 0.9 k/uL (1.0-4.8); Lymphocytes % (A) 19 %; MCH 32.4 pg (25.0-35.0); MCHC 35.1 g/dL (31.0-37.0); MCV 92.4 fL (80.0-100.0); Mean Platelet Volume 9.3; Monocytes # (A) 0.3 k/uL (0-1.0); Monocytes % (A) 7 %; Neutrophils # (A) 3.2 k/uL (1.3-7.7); Neutrophils % (A) 70 %; Platelet Count 111 k/uL (150-450); RBC 4.74 m/uL (4.30-5.90); RDW 13.9 % (11.5-15.5); WBC 4.6 k/uL (3.8-10.6)
[2021-01-13] MEDS ORDERED: GLYCOPYRROLATE 0.2 MG/ML 2 ML VIAL ONE (07:38)
[2021-01-13] MEDS ORDERED: PROPOFOL 10 MG/ML 20 ML VIAL IV ONE (07:38)
[2021-01-13] MEDS ORDERED: LIDOCAINE 1% INJ 10MG/ML (20 ML MDV) ONE (07:38)
[2021-01-13] MEDS ORDERED: SUCCINYLCHOLINE CHLORIDE VIAL 200 MG/10 ML VIAL IV ONE (07:38)
[2021-01-13] MEDS ORDERED: ONDANSETRON 4 MG/2 ML VIAL ONE (07:38)
[2021-01-13] MEDS ORDERED: ROCURONIUM 10 MG/ML (5 ML VIAL) IV ONE (07:38)
[2021-01-13] MEDS ORDERED: fentaNYL (PF) 50 MCG/ML 2 ML AMP ONE (07:38)
[2021-01-13] MEDS ORDERED: KETAMINE 10 MG/ML 20 ML VIAL ONE (07:38)
[2021-01-13] MEDS ORDERED: NEOSTIGMINE 1 MG/ML 10 ML VIAL ONE (07:38)
[2021-01-13 07:44] LABS: Albumin 4.4 g/dL (3.5-5.0); Calcium 9.5 mg/dL (8.4-10.2); Potassium 4.3 mmol/L (3.5-5.1); Total Protein 6.8 g/dL (6.3-8.2)
[2021-01-13] MEDS ORDERED: BUPIVACAINE (PF) 0.5% 30 ML VIAL SQ ONE (08:08)
[2021-01-13] MEDS ORDERED: HYDROmorphone 1 MG/ML 1 ML SYRINGE IVP PRN (11:40)
[2021-01-13] MEDS ORDERED: NALOXONE 0.4 MG/ML 1 ML VIAL IV PRN (11:40)
[2021-01-13] MEDS ORDERED: diphenhydrAMINE 50 MG/ML 1 ML VIAL IVP PRN (11:40)
[2021-01-13] MEDS: HYDROmorphone 0.5 MG/0.5 ML SYRINGE IVP PRN ×2 (11:45→12:47)
--- NOTE | 2021-01-13 11:48 | P.OP ---
Date of Procedure: 01/13/21 Description of Procedure: SURGEON: JOSE A WILEY MD PREOPERATIVE DIAGNOSES: 1. Morbid obesity due to excess calories POSTOPERATIVE DIAGNOSES: 1. Morbid obesity due to excess calories 2. Abdominal peritoneal greater omental adhesions OPERATION: 1. Robotic assisted da Antonio Xi laparoscopic lysis of adhesions over 30 minute 2. Robotic assisted da Antonio Xi laparoscopic Brooklynn-en-Y gastric bypass, 75 cm antecolic antegastric Brooklynn limb, with 21 mm EEA. 3. Intraoperative esophagogastrojejunoscopy. ANESTHESIA: GETA and local ESTIMATED BLOOD LOSS: 20 mL SPECIMENS REMOVED: None. COMPLICATIONS: NONE. Operative Findings: 1. Biliopancreatic limb 60 cm 2. Bypass performed using 75 cm brooklynn limb secondary to short small bowel mesentery 3. Vick defect and jejunojejunostomy defect closed with nonabsorbable 2-0 V LOC 4. Leak test negative with gastrojejunal anastomosis patent and hemostatic. 5. Reinforcement sutures were placed along the gastrojejunal anastomosis, circumferentially 6. Liver within normal limits 7. Greater omentum to abdominal wall adhesions involving the lower abdomen and incarcerated umbilical hernia INDICATIONS: Christo Cortes is a 50-year-old male with lifelong history of morbid obesity. He has completed medical supervised weight loss. He has worsening gastroesophageal reflux disease and is looking into the gastric bypassHe presents here for evaluation of morbid obesity. At height of 5 foot, 11 inches, ideal body weight is 178 pounds. His highest weight was 325 pounds, BMI 45.4. He is 143 pounds overweight. A second-generation bariatric consent form was described in detail including the possibility of protein malnutrition, leaks, gastrojejunal stricture, venous thrombosis, need for further surgery for which she demonstrated understanding. Benefits and risks of the procedure were described at length. Informed consent was obtained. DESCRIPTION: The patient was brought into the operating room theater. He was placed supine. He had received Lovenox subcutaneously for DVT prophylaxis. Additionally he Peridex oral solution as an oral decontaminant was placed per anesthesia. After general induction, the abdomen was prepped and draped in standard sterile fashion. Ioban draping was placed along the abdomen. A robotic da Antonio Xi system was prepped and primed. The xiphoid to umbilicus was measured of 16 cm. Incisions were proposed at 15 cm from the xiphoid. Proposed port sites were marked with indelible marker along the anterior axillary line bilaterally, mid clavicular line bilaterally with each port marked 10 cm from each other. The robotic stapler port was marked for the right midclavicular line including along the left midclavicular line. A protuberance along the mid abdomen at the epigastrium was identified suspicious for ventral hernia. As a result, a 5 mm 0 laparoscopic trocar entry was performed along the left upper quadrant. The abdomen was insufflated to 15 mmHg pressure, which he tolerated well. Diagnostic laparoscopy demonstrated no injury to bowel, viscera, or mesentery. Small bilateral indirect inguinal hernias were identified. The liver edge was within normal limits. Diagnostic laparoscopy confirmed a moderately dilated stomach. No hernias were identified. I went to the head of the bed to suction the entire stomach and deflate the stomach. The 5 mm trocar remained intact. An 8 mm camera port was placed left lateral to the umbilicus at the epigastrium, 15 cm distal to the xiphoid. Next, 12-mm robot stapler port was placed along the right mid abdomen. An 12 mm port was placed along the left upper quadrant. An 8 mm port was placed on the left lateral abdominal wall under direct visualization Please note that the ports were placed 18 to 20 cm away from the target anatomy of the stomach. Care was taken to check that each robotic arm was safely away from collision w ith the bed or the patient. At the epigastrium, a medium sized Crow liver retractor was placed under direct visualization with the [employer] Clerk placed under the right shoulder of the patient. The patient was repositioned in reverse Trendelenburg position at 21-degrees after lowering the bed. The robot was docked over the patient. Using grasper for arm 3, a grasper for arm 1, including vessel sealer for arm 4, the robotic system was docked and primed as described. Instruments were interchanged by the contract assistant including endoscissors, the needle regional company truck driver, and stapler. I had sat at the console. Next, the transverse mesocolon was reflected into the upper abdomen after dividing the mesentery and preparing for the jejunojejunostomy portion of the case. The ligament of Treitz was identified and measured 60 cm antegrade and marked using 3-0 Silk. The jejunum was divided at the 60 cm point using 60-mm blue loads above the suture measurement. The biliopancreatic limb was held in place. The Brooklynn limb was measured 100 cm in an antegrade fashion to avoid tension along the proposed gastrojejunal anastomosis. At 100 cm along the anti-mesenteric border of the Brooklynn limb, a jejunojejunostomy was proposed whereby enterotomies were created along the biliopancreatic limb including the Brooklynn limb using a Bovie cautery. A stay suture of 3-0 Slik was placed to align and create the anast omosis. The enterotomies along the anti-mesenteric borders were created followed by unidirectional fire from the patient's right side using 60 mm blue load Smart technology robotic stapler. The jejunojejunostomy was found to be hemostatic. The enterotomy was closed after horizontal mattress stitch of 3-0 silk used to elevate the enterotomy followed by closure with the robotic stapler blue load. The jejunal limb was temporarily tacked along the left upper quadrant. Attention was now brought to the creation of the gastrojejunostomy. Along the lesser curvature of the stomach between the second and third veins, dissection was made along the retrogastric space to allow first firing of the robotic staple. Blue loads of 60 mm staplers were used to divide the stomach to create the gastric pouch. The patient was then prepared for placement of a Orvil. The patient was Mallampati 2. A 25-mm Orvil was selected for placement by the nurse dental assistant medical assistant. The Orvil tubing was placed posterior to the staple line of the gastric pouch and brought out through the left inferior lateral port. I re-scrubbed into the case. The robotic arms were temporarily undocked. The Orvil was then carefully and successfully navigated with the help of the nurse dental assistant medical assistant into the gastric pouch. The sutures were identified and divided. The tubing was from the 25 mm anvil. As the Orvil had been placed, the blind jejunal limb was brought proximally into the upper abdomen. No torsion was found upon the Brooklynn limb. No tension was identified as the limb was brought along the upper abdomen. The blind jejunal limb was previously opened using endo-scissors with cautery. The 25-mm EEA stapler was brought through the left anterior lateral port site from the left side. The EEA stapler was brought through the open jejunal limb and its needle was deployed at the antimesenteric border where the anvil were mated for approximately 1 minute upon firing. The stapler was removed after irrigating the shaft of the instrument with warm normal saline. Donuts were found to be intact and on both sides. The da Antonio Xi robot arms were then re-docked. I sat at the console. The open jejunal limb defect was closed using 60 mm blue loads after releasing any tension from the blind jejunal limb. Care was taken to avoid any long blind limb to avoid candycane syndrome. Reinforcement sutures were placed along the gastrojejunal anastomosis and placed along the 12:00, 6:00, 9:00 and 3 o'clock position using 3-0 Polysorb. The Willams and jejunojejunostomy mesenteric defects were closed using 2-0 VLOC. I then went to the head of the bed to perform the esophagogastrojejunoscopy and a leak test. An Olympus gastroscope was passed along the posterior oropharynx which was unremarkable for any injury to the vocal cords. The scope was passed down to the proximal portion of the pouch, whereby no active bleeding was encountered. Excellent visualization of the gastrojejunostomy anastomosis, including the Brooklynn limb was encountered with endoscopic image obtained. The anastomosis was found to be patent. The gastrointestinal tract was desufflated. No evidence of intraoperative leak was encountered as the gastric pouch and anastomosis were submerged under normal saline solution. The robot was then undocked. I then went back to the bedside of the patient, whereby with coordinated effort of the contract assistant, irrigation was aspirated from the upper abdominal cavity. Tisseel was placed circumferentially over the anastomosis of the gastrojejunostomy. The fascial defect of the EEA stapler was closed using Jeramie Sandhu and 0 Vicryl. All instruments and pneumoperitoneum were evacuated from the abdominal cavity. The port correlating with the EEA stapler device was cleansed with normal saline solution and hydrogen peroxide. The rest of incisions were reapproximated using 4-0 Monocryl in an interrupted subcuticular fashion. Local anesthetic was infiltrated along the skin for postop analgesia. Liquid glue was applied to the skin. OptiFoam dressing was placed along the EEA stapler site. At the end of the procedure, needle, sponge and instrument count had been verified correct by the neurosurgical physician assistant. He had tolerated the procedure well and was extubated and taken to the postanesthesia unit in stable condition. Intraoperative findings were described to the patient's family who were very pleased with the level of care.
[2021-01-13] MEDS: 0.9% NACL WITH KCL 20 MEQ/L 1,000 ML IV SCH ×2 (16:30→23:53)
[2021-01-13] MEDS: ceFAZolin 3 GM in SODIUM CHLORIDE 0.9% 100 ML IVPB SCH ×2 (16:31→23:56)
[2021-01-13] MEDS: ONDANSETRON 4 MG/2 ML VIAL IVP SCH ×2 (16:34→17:30)
[2021-01-13] MEDS: ALBUTEROL NEBULIZED 2.5 MG/3 ML INHALATION SCH ×3 (16:34→20:41)
[2021-01-13] MEDS: LACTATED RINGERS 1,000 ML IV SCH (16:34)
[2021-01-13] MEDS: ACETAMINOPHEN IV (For NPO) 1,000 MG in EMPTY BAG 1 BAG IVPB SCH (17:18)
[2021-01-13] MEDS: HYOSCYAMINE ORAL DROPS 1.875 MG/15 ML BOTTLE PO SCH ×2 (17:21→23:57)
[2021-01-13] MEDS: SIMETHICONE 40 MG/0.6 ML DROPS 2,000 MG/30 ML BOTTLE PO SCH (17:38)
[2021-01-14] MEDS: SIMETHICONE 40 MG/0.6 ML DROPS 2,000 MG/30 ML BOTTLE PO SCH ×5 (00:03→17:19)
[2021-01-14] MEDS: ACETAMINOPHEN IV (For NPO) 1,000 MG in EMPTY BAG 1 BAG IVPB SCH ×3 (00:04→12:06)
[2021-01-14] MEDS: lisinopriL 20 MG TAB PO SCH ×3 (05:45→21:24)
[2021-01-14] MEDS: ONDANSETRON 4 MG/2 ML VIAL IVP SCH ×4 (06:00→17:18)
[2021-01-14] MEDS: HYOSCYAMINE ORAL DROPS 1.875 MG/15 ML BOTTLE PO SCH ×3 (06:01→17:19)
[2021-01-14] MEDS: 0.9% NACL WITH KCL 20 MEQ/L 1,000 ML IV SCH (07:13)
[2021-01-14] MEDS: ALBUTEROL NEBULIZED 2.5 MG/3 ML INHALATION SCH ×4 (07:14→20:04)
[2021-01-14] MEDS: LACTATED RINGERS 1,000 ML IV SCH (07:19)
[2021-01-14] MEDS ORDERED: 1: MVI, ADULT NO.4 WITH VIT K 10 ML, THIAMINE 100 MG, FOLIC ACID 1 MG, POTASSIUM CHLORID IV SCH ×6 (08:00)
[2021-01-14 08:33] LABS: African American GFR (CKD) >90 (>60 ml/min/1.73 sqM); Anion Gap 8 mmol/L; Blood Urea Nitrogen 13 mg/dL (9-20); Carbon Dioxide 24 mmol/L (22-30); Chloride 107 mmol/L (98-107); Glucose 120 mg/dL (74-99); Non-African American GFR(CKD) 79 (>60 ml/min/1.73 sqM); Potassium 4.7 mmol/L (3.5-5.1); Sodium 139 mmol/L (137-145)
[2021-01-14] MEDS: PANTOPRAZOLE 40 MG/10 ML VIAL IV SCH (08:44)
[2021-01-14] MEDS: 1: THIAMINE 100 MG, FOLIC ACID 1 MG, POTASSIUM CHLORIDE 20 MEQ in SODIUM CHLORIDE 0.9% 1 IVPB SCH ×10 (08:45→18:05)
[2021-01-14 08:48] LABS: HCT 40.8 % (39.0-53.0); HGB 13.5 gm/dL (13.0-17.5); MCH 31.7 pg (25.0-35.0); MCV 96.1 fL (80.0-100.0); RBC 4.25 m/uL (4.30-5.90)
[2021-01-14 08:49] LABS: Basophils % (A) 0 %; Eosinophils % (A) 0 %; Lymphocytes # (A) 0.6 k/uL (1.0-4.8); Lymphocytes % (A) 11 %; Mean Platelet Volume 8.7; Monocytes # (A) 0.4 k/uL (0-1.0); Monocytes % (A) 6 %; Neutrophils # (A) 4.9 k/uL (1.3-7.7); Neutrophils % (A) 81 %; RDW 13.9 % (11.5-15.5)
[2021-01-14] MEDS ORDERED: ENOXAPARIN 30 MG/0.3 ML SYRINGE SQ SCH (09:00)
[2021-01-14 10:19] LABS: Platelet Count 99 k/uL (150-450)
--- NOTE | 2021-01-14 12:43 | P.PN ---
Subjective Progress Note Date: 01/14/21 CHIEF COMPLAINT: Morbid obesity HISTORY OF PRESENT ILLNESS: Christo Cortes is a 50-year-old male status post gastric bypass 01/13/2021. He is tolerating liquids. He feels well. He reports minimal discomfort along the shoulders as to be expected. His ansari was just removed. He is pending to void. REVIEW OF SYSTEMS: No reports nausea or vomiting. No fevers or chills. No chest pain. PHYSICAL EXAM: VITAL SIGNS: Reviewed GENERAL: Well-developed male in no acute distress. ABDOMEN: Incisions clean dry and intact. Binder intact. HEENT: Hears conversational speech. Moist buccal mucosa. Extraocular movements were grossly intact. No nasal drainage. NECK: Supple without lymphadenopathy. CHEST: Unlabored respirations, equal bilateral excursions. CARDIOVASCULAR: Regular rate and rhythm. 2+ radial pulses. MUSCULOSKELETAL: No clubbing cyanosis or edema. NEURO: No focal or lateralizing signs. Cranial nerves II-12 grossly intact. PSYCH: Appropriate affect. Alert and oriented to person, place, and time. SKIN: Well perfused. Good skin turgor. LABS: Reviewed. WBC normal. Platelets low 99. Creatinine improved. ASSESSMENT: 1. Morbid obesity due to excess calories, BMI 45.4, now 42.6 2. Hyperlipidemia 3. Depressive disorder 4. Hypertensive heart disease 5. Vertigo 6. White brain matter disease 7. Anxiety 8. Panniculitis. 9. Coronary artery disease 10. Thrombocytopenia 11. Hypernatremia 12. Left lower abdominal pain 13. Dietary surveillance and counseling 14. Colon polyps 15. Chronic gastritis 16. Chronic renal insufficiency 17. Status post gastric bypass PLAN: 1. Await void. 2. Discharge medications and diet reviewed. 3. Patient seen by bariatric dietitian. 4. May discharge after void. 5. Discontinue Lovenox/heparin products due to thrombocytopenia. Continued ambulation encouraged. Objective - Vital Signs Vital signs: Vital Signs Temp 97.4 F L 01/14/21 06:55 Pulse 88 01/14/21 11:20 Resp 16 01/14/21 02:00 BP 134/82 01/14/21 06:55 Pulse Ox 96 01/14/21 10:36 Intake & Output 01/13/21 01/14/21 01/14/21 18:59 06:59 18:59 Intake Total 2350 Output Total 620 1400 Balance 1730 -1400 Weight 138.7 kg Intake: IV 2350 Output: Urine 600 1400 Estimated Blood Loss 20 Other: Voiding Method Indwelling Catheter - Labs CBC & Chem 7: 01/14/21 07:56 01/14/21 07:56 Labs: Abnormal Lab Results - Last 24 Hours (Table) 01/14/21 01/14/21 Range/Units 07:56 07:56 RBC 4.25 L (4.30-5.90) m/uL Plt Count 99 L (150-450) k/uL Lymphocytes # 0.6 L (1.0-4.8) k/uL Glucose 120 H (74-99) mg/dL Assessment and Plan (1) Morbid obesity due to excess calories Current Visit: Yes Status: Acute Code(s): E66.01 - MORBID (SEVERE) OBESITY DUE TO EXCESS CALORIES SNOMED Code(s): 868549048 (2) BMI 45.0-49.9, adult Current Visit: Yes Status: Acute Code(s): Z68.42 - BODY MASS INDEX [BMI] 45.0-49.9, ADULT SNOMED Code(s): 396761483 (3) Sleep apnea Current Visit: Yes Status: Acute Code(s): G47.30 - SLEEP APNEA, UNSPECIFIED SNOMED Code(s): 48387614 (4) Hypertensive heart disease Current Visit: Yes Status: Acute Code(s): I11.9 - HYPERTENSIVE HEART DISEASE WITHOUT HEART FAILURE SNOMED Code(s): 77981371
[2021-01-14] MEDS ORDERED: SODIUM CHLORIDE 0.9% 1,000 ML IV ONE (12:47)
[2021-01-14 14:04] VITALS: BMI 42.6
[2021-01-15] MEDS: ONDANSETRON 4 MG/2 ML VIAL IVP SCH ×3 (00:12→11:59)
[2021-01-15] MEDS: HYOSCYAMINE ORAL DROPS 1.875 MG/15 ML BOTTLE PO SCH ×3 (00:12→11:59)
[2021-01-15] MEDS: SIMETHICONE 40 MG/0.6 ML DROPS 2,000 MG/30 ML BOTTLE PO SCH ×3 (00:12→11:59)
[2021-01-15] MEDS: 1: THIAMINE 100 MG, FOLIC ACID 1 MG, POTASSIUM CHLORIDE 20 MEQ in SODIUM CHLORIDE 0.9% 1 IVPB SCH ×5 (04:03)
[2021-01-15 06:24] VITALS: BP 158/90; RESP 15; TEMP 98.6
[2021-01-15] MEDS: PANTOPRAZOLE 40 MG/10 ML VIAL IV SCH (07:49)
[2021-01-15] MEDS: lisinopriL 20 MG TAB PO SCH (07:49)
[2021-01-15 07:51] LABS: Basophils % (A) 0 %; Eosinophils # (A) 0.1 k/uL (0-0.7); Eosinophils % (A) 2 %; Lymphocytes # (A) 0.6 k/uL (1.0-4.8); Lymphocytes % (A) 9 %; MCH 32.6 pg (25.0-35.0); MCHC 34.1 g/dL (31.0-37.0); MCV 95.7 fL (80.0-100.0); Mean Platelet Volume 8.8; Monocytes # (A) 0.4 k/uL (0-1.0); Monocytes % (A) 6 %; Neutrophils # (A) 5.5 k/uL (1.3-7.7); Neutrophils % (A) 82 %; Platelet Count 104 k/uL (150-450); RBC 4.29 m/uL (4.30-5.90); WBC 6.7 k/uL (3.8-10.6)
[2021-01-15] MEDS ORDERED: bisacodyL 5 MG TABLET.DR PO PRN (08:00)
[2021-01-15 08:06] LABS: African American GFR (CKD) >90 (>60 ml/min/1.73 sqM); Anion Gap 10 mmol/L; Blood Urea Nitrogen 8 mg/dL (9-20); Calcium 9.1 mg/dL (8.4-10.2); Carbon Dioxide 23 mmol/L (22-30); Chloride 105 mmol/L (98-107); Glucose 109 mg/dL (74-99); Non-African American GFR(CKD) >90 (>60 ml/min/1.73 sqM); Potassium 4.5 mmol/L (3.5-5.1); Sodium 138 mmol/L (137-145)
[2021-01-15] MEDS: ALBUTEROL NEBULIZED 2.5 MG/3 ML INHALATION SCH ×2 (08:14→11:10)
[2021-01-15 11:22] VITALS: PULSE 88
--- NOTE | 2021-01-15 12:15 | P.DS ---
Providers Date of admission: 01/13/21 06:03 Expected date of discharge: 01/15/21 Attending physician: Kylie Montemayor Primary care physician: Juanis Zarate - Discharge Diagnosis(es) (1) Morbid obesity due to excess calories Current Visit: Yes Status: Acute (2) BMI 45.0-49.9, adult Current Visit: Yes Status: Acute (3) Sleep apnea Current Visit: Yes Status: Acute (4) Hypertensive heart disease Current Visit: Yes Status: Acute Hospital Course: DIAGNOSES: 1. Morbid obesity due to excess calories, BMI 45.4, now 42.6 2. Hyperlipidemia 3. Depressive disorder 4. Hypertensive heart disease 5. Vertigo 6. White brain matter disease 7. Anxiety 8. Panniculitis. 9. Coronary artery disease 10. Thrombocytopenia 11. Hypernatremia 12. Left lower abdominal pain 13. Dietary surveillance and counseling 14. Colon polyps 15. Chronic gastritis 16. Chronic renal insufficiency 17. Status post gastric bypass COURSE: Christo Cortes is a 50-year-old male underwent the bariatric program from medical assessment the bariatric procedures. He is status post gastric bypass 01/13/2021. He was tolerating diet. He was voiding spontaneously. Pain was well controlled. Patient had pre-existing thrombocytopenia. Lovenox was discontinued to decrease risk for bleeding. Hemoglobin was stable. PHYSICAL EXAM: VITAL SIGNS: Reviewed GENERAL: Well-developed male in no acute distress. ABDOMEN: Incisions clean dry and intact. Binder intact. HEENT: Hears conversational speech. Moist buccal mucosa. Extraocular movements were grossly intact. No nasal drainage. NECK: Supple without lymphadenopathy. CHEST: Unlabored respirations, equal bilateral excursions. CARDIOVASCULAR: Regular rate and rhythm. 2+ radial pulses. MUSCULOSKELETAL: No clubbing cyanosis or edema. NEURO: No focal or lateralizing signs. Cranial nerves II-12 grossly intact. PSYCH: Appropriate affect. Alert and oriented to person, place, and time. SKIN: Well perfused. Good skin turgor. LABS: Reviewed. WBC normal at 6.7. hemoglobin stable 14.0. Platelets low 104, trending upward. Creatinine improved, 0.92. PLAN: 1. Discharge instructions reviewed. Stable for discharge. Procedures: OPERATION: 1. Robotic assisted da Antonio Xi laparoscopic lysis of adhesions over 30 minute 2. Robotic assisted da Antonio Xi laparoscopic Brooklynn-en-Y gastric bypass, 75 cm antecolic antegastric Brooklynn limb, with 21 mm EEA. 3. Intraoperative esophagogastrojejunoscopy. ANESTHESIA: GETA and local ESTIMATED BLOOD LOSS: 20 mL SPECIMENS REMOVED: None. COMPLICATIONS: NONE. Operative Findings: 1. Biliopancreatic limb 60 cm 2. Bypass performed using 75 cm brooklynn limb secondary to short small bowel mesentery 3. Vick defect and jejunojejunostomy defect closed with nonabsorbable 2-0 V LOC 4. Leak test negative with gastrojejunal anastomosis patent and hemostatic. 5. Reinforcement sutures were placed along the gastrojejunal anastomosis, circumferentially 6. Liver within normal limits 7. Greater omentum to abdominal wall adhesions involving the lower abdomen and incarcerated umbilical hernia Patient Condition at Discharge: Good Plan - Discharge Summary Discharge Rx Participant: No New Discharge Prescriptions: New bisacodyL [Dulcolax] 5 mg PO DAILY PRN #10 tab PRN Reason: Constipation Simethicone 40 mg/0.6 ml Drops [Mylicon Drops] 40 mg PO PCHS PRN #30 ml PRN Reason: Gas Ondansetron Odt [Zofran Odt] 4 mg PO Q8HR PRN #9 tab PRN Reason: Nausea Omeprazole [PriLOSEC] 40 mg PO DAILY #30 cap Acetaminophen Tab [Tylenol Tab] 1,000 mg PO Q6HR PRN #30 tablet PRN Reason: Pain Continue buPROPion XL [Wellbutrin XL] 300 mg PO QAM lisinopriL [Zestril] 20 mg PO BID Discontinued Omeprazole [PriLOSEC] 20 mg PO QAM Discharge Medication List buPROPion XL [Wellbutrin XL] 300 mg PO QAM 10/01/18 [History] lisinopriL [Zestril] 20 mg PO BID 12/23/19 [History] Acetaminophen Tab [Tylenol Tab] 1,000 mg PO Q6HR PRN #30 tablet 01/15/21 [Rx] Omeprazole [PriLOSEC] 40 mg PO DAILY #30 cap 01/15/21 [Rx] Ondansetron Odt [Zofran Odt] 4 mg PO Q8HR PRN #9 tab 01/15/21 [Rx] Simethicone 40 mg/0.6 ml Drops [Mylicon Drops] 40 mg PO PCHS PRN #30 ml 01/15/21 [Rx] bisacodyL [Dulcolax] 5 mg PO DAILY PRN #10 tab 01/15/21 [Rx] Follow up Appointment(s[facility] [facility] [place] [place] [place] (Nurse visit. Call to confirm time. ) Patient Instructions/Handouts: *[facility] - Managing Your Pain After Surgery Without Opioids, *[facility] - Scopalamine Patch Instructions, Nutrition after Bariatric Surgery (DC), Brooklynn-en-Y Gastric Bypass (DC) Activity/Diet/Wound Care/Special Instructions: Liquid diet only for 2 weeks until January 27July Shower. No soaking in bath tubs, until January 27 You have new prescriptions at your local pharmacy. Continue to use incentive spirometry to prevent pneumonias. Please continue to ambulate at home to prevent blood clots in legs. Please notify your surgeon if you develop nausea and vomiting including new onset of abdominal pain. No lifting over 4 pounds in 4 weeks, February 13. Drink 64 oz of fluid daily. Start protein shakes on Saturday. Notify bariatric center for temp over 101.0, increased pain, drainage from incisions. No straws or carbonated beverages. Liquid diet only. Sugar content should be less than 6 g to avoid dumping syndrome. Take MOM for constipation. CRUSH, OPEN, OR CUT TABLETS LARGER THAN A SIZE OF A TIC TAC Discharge Disposition: HOME SELF-CARE
== END 2021-01-15 13:39 | disposition home or self-care (01) | DRG 620 ==
LOC: 2ORMAIN 01-13 06:03 → 4SSUR 01-13 15:30
PROVIDERS: ADMIT Surgery Plastic and Reconstructive Surgery; ATTEND Surgery Plastic and Reconstructive Surgery
PROC: 8E0W4CZ Robotic Assisted Procedure of Trunk Region, Percutaneous Endoscopic Approach (ICD-10-PCS; principal; 2021-01-13 07:30)
PROC: 0DNW4ZZ Release Peritoneum, Percutaneous Endoscopic Approach (ICD-10-PCS; principal; 2021-01-13 07:30)
PROC: 0D164ZA Bypass Stomach to Jejunum, Percutaneous Endoscopic Approach (ICD-10-PCS; principal; 2021-01-13 07:30)
PROC: 0DNU4ZZ Release Omentum, Percutaneous Endoscopic Approach (ICD-10-PCS; principal; 2021-01-13 07:30)
PROC: 0DJ08ZZ Inspection of Upper Intestinal Tract, Via Natural or Artificial Opening Endoscopic (ICD-10-PCS; principal; 2021-01-13 07:30)
DX: E66.01 Morbid (severe) obesity due to excess calories (principal); K42.0 Umbilical hernia with obstruction, without gangrene; Z68.41 Body mass index [BMI] 40.0-44.9, adult; Z71.3 Dietary counseling and surveillance; Z20.822 Contact with and (suspected) exposure to COVID-19; D69.6 Thrombocytopenia, unspecified; E78.5 Hyperlipidemia, unspecified; F32.9 Major depressive disorder, single episode, unspecified; F41.9 Anxiety disorder, unspecified; G47.30 Sleep apnea, unspecified; I13.10 Hypertensive heart and chronic kidney disease without heart failure, with stage 1 through stage 4 chronic kidney disease, or unspecified chronic kidney disease; I25.10 Atherosclerotic heart disease of native coronary artery without angina pectoris; K21.9 Gastro-esophageal reflux disease without esophagitis; K29.50 Unspecified chronic gastritis without bleeding; R90.82 White matter disease, unspecified; R42 Dizziness and giddiness; K40.20 Bilateral inguinal hernia, without obstruction or gangrene, not specified as recurrent; K63.5 Polyp of colon; K66.0 Peritoneal adhesions (postprocedural) (postinfection); M79.3 Panniculitis, unspecified; N18.9 Chronic kidney disease, unspecified; Z79.899 Other long term (current) drug therapy; Z83.3 Family history of diabetes mellitus; Z86.16 Personal history of COVID-19; Z87.891 Personal history of nicotine dependence; Z91.030 Bee allergy status
CPT/HCPCS: 80048; 80053; 85025; 87635; 94640; 94760; 94762

== ENCOUNTER → 2021-01-18 | Outpatient (CLI) | payer MEDICARE ==
[~2021-01-18] MED LIST changes: -LACTATED RINGERS 1,000 ML IV SCH; +SODIUM CHLORIDE 0.9% 1,000 ML IV ONE
[2021-01-18 14:11] VITALS: BP 158/100; PULSE 93; RESP 16; TEMP 98.1
== END ==
LOC: PROCWHC3 14:05
PROVIDERS: ATTEND Surgery Plastic and Reconstructive Surgery
DX: E86.0 Dehydration (principal); Z91.030 Bee allergy status; Z87.891 Personal history of nicotine dependence
CPT/HCPCS: 96360

== ENCOUNTER → 2021-01-18 | Outpatient (CLI) | payer MEDICARE ==
[2021-01-18 14:17] VITALS: BMI 41.0
[2021-01-18 14:45] VITALS: BP 158/100; PULSE 93; TEMP 98.1
== END ==
LOC: BARWHC3 13:09
PROVIDERS: ATTEND Surgery Plastic and Reconstructive Surgery
DX: Z09 Encounter for follow-up examination after completed treatment for conditions other than malignant neoplasm (principal); E66.01 Morbid (severe) obesity due to excess calories; Z68.41 Body mass index [BMI] 40.0-44.9, adult; Z87.891 Personal history of nicotine dependence; Z71.3 Dietary counseling and surveillance; Z91.030 Bee allergy status
CPT/HCPCS: 97803; G0463; 99211

== ENCOUNTER → 2021-02-15 | Outpatient (CLI) | payer MEDICARE ==
[2021-02-15 14:38] VITALS: BP 127/85; PULSE 72; RESP 18; TEMP 97.6; BMI 37.5
--- NOTE | 2021-02-15 15:02 | P.BASOAP ---
Subjective Progress Note Date: 02/15/21 He tried turkey with consequences. He is doing well with excellent loss. He wants to get down to 220 pounds. He stays well hydrated of 33+ oz. He is 1 month out. Monitor without Omeprazole. Blood work 1 month out. Objective - Vital Signs Vital signs: Vital Signs Temp 97.6 F 02/15/21 14:31 Pulse 72 02/15/21 14:31 Resp 18 02/15/21 14:31 BP 127/85 02/15/21 14:31 Pulse Ox Intake & Output 02/14/21 02/15/21 02/15/21 18:59 06:59 18:59 Weight 122.062 kg Assessment/Plan Plan: Date: 02/15/21 Initial Weight: 147.418 kg Initial BMI: 45.3 Current Weight: 122.062 kg Current BMI: 37.5 Type of Surgery: Total Volume in Band: Previous Volume: Volume Removed: Volume Added: Band Size:
== END ==
LOC: BARWHC3 13:27
PROVIDERS: ATTEND Surgery Plastic and Reconstructive Surgery
DX: E66.01 Morbid (severe) obesity due to excess calories (principal); Z71.3 Dietary counseling and surveillance; Z91.030 Bee allergy status; Z87.891 Personal history of nicotine dependence; Z68.37 Body mass index [BMI] 37.0-37.9, adult
CPT/HCPCS: 97803; G0463; 99211

== ENCOUNTER → 2021-02-21 | Outpatient (CLI) | payer MEDICARE ==
[~2021-02-21] MED LIST changes: +SODIUM CHLORIDE 0.9% 1,000 ML IV NR; -SODIUM CHLORIDE 0.9% 1,000 ML IV ONE; +SODIUM CHLORIDE 0.9% 1,000 ML IV SCH; +SODIUM CHLORIDE 0.9% 500 ML 500 ML in EMPTY BAG 1 BAG IV PRN
[2021-02-21 10:21] VITALS: BP 137/84; PULSE 66; RESP 16; TEMP 97.8
== END ==
LOC: PROCWHC3 09:48
PROVIDERS: ATTEND Surgery Plastic and Reconstructive Surgery
DX: E86.0 Dehydration (principal); Z87.891 Personal history of nicotine dependence; Z91.030 Bee allergy status
CPT/HCPCS: 96360; 96361

== ENCOUNTER 2021-02-22 10:05 | Day surgery (SDC) | payer MEDICARE ==
[2021-02-21 11:53] VITALS: BMI 37.5
--- NOTE | 2021-02-22 08:38 | P.GSHP ---
History of Present Illness H&P Date: 02/22/21 CHIEF COMPLAINT: GERD HISTORY OF PRESENT ILLNESS: The patient is a 50-year-old male who presents reports gastroesophageal reflux disease. Upper endoscopy was offered for further evaluation and management. PAST MEDICAL HISTORY: Please see list. PAST SURGICAL HISTORY: Please see list. MEDICATIONS: Please see list. ALLERGIES: Please see list. SOCIAL HISTORY: No illicit drug use FAMILY HISTORY: No reports of Crohn disease or ulcerative colitis. REVIEW OF ORGAN SYSTEMS: CONSTITUTIONAL: No reports of fevers or chills. GI: Denies any blood in stools or constipation. PHYSICAL EXAM: VITAL SIGNS: Stable GENERAL: Well-developed and pleasant in no acute distress. HEENT: No scleral icterus. Extraocular movements grossly intact. Moist buccal mucosa. NECK: Supple without lymphadenopathy. CHEST: Unlabored respirations. Equal bilateral excursions. CARDIOVASCULAR: Regular rate and rhythm. Distal 2+ pulses. ABDOMEN: Soft, nondistended. MUSCULOSKELETAL: No clubbing, cyanosis, or edema. ASSESSMENT: 1. Gastroesophageal reflux disease PLAN: 1. Recommend proceeding with an upper endoscopy Past Medical History Past Medical History: GERD/Reflux, Hypertension, Memory Impairment, Sleep Apnea/CPAP/BIPAP Additional Past Medical History / Comment(s): White brain matter disease, short term memory issues. Vertigo. Hx COVID July 2020. CPAP use. States can't keep food down. IV fluids on 02/21/21. History of Any Multi-Drug Resistant Organisms: None Reported Past Surgical History: Bariatric Surgery, Heart Catheterization, Hernia Repair, Orthopedic Surgery Additional Past Surgical History / Comment(s): Umbilical hernia repair, bilateral shoulder arthroscopy(arthritis/bone spurs), right knee meniscus surgery, deviated septum procedure in office d/t nose bleed, colonoscopy X3 (has this performed q5 years d/t precancerous polyps), bilateral hand surgery. Gastric Bypass 01/13/21. Past Anesthesia/Blood Transfusion Reactions: No Reported Reaction Additional Past Anesthesia/Blood Transfusion Reaction / Comment(s): Vertigo. Smoking Status: Former smoker - Past Family History Mother Additional Family Medical History / Comment(s): Hypoglycemia, dizzy spells. Father Family Medical History: Diabetes Mellitus Additional Family Medical History / Comment(s): Type 2 DM. Sister(s) Additional Family Medical History / Comment(s): sister #1: Doroteon's Disease. Sister #2,3,&4: stomach problems Medications and Allergies Home Medications Medication Instructions Recorded Confirmed Type No Known Home Medications 02/21/21 02/21/21 History Allergies Allergy/AdvReac Type Severity Reaction Status Date / Time bee venom protein (honey bee) Allergy Unknown Verified 02/21/21 10:17
[2021-02-22 10:33] VITALS: RESP 16; TEMP 97.5
[2021-02-22] MEDS ORDERED: LACTATED RINGERS 1,000 ML IV ONE (10:33)
[2021-02-22] MEDS ORDERED: LIDOCAINE 1% (10MG/ML) FOR IV START INTRADERMA ONE (10:34)
[2021-02-22] MEDS ORDERED: LIDOCAINE 1% INJ 10MG/ML (20 ML MDV) ONE (11:03)
[2021-02-22] MEDS ORDERED: PROPOFOL 10 MG/ML 20 ML VIAL IV ONE (11:03)
--- NOTE | 2021-02-22 11:29 | P.PCN ---
Date of Procedure: 02/22/21 Description of Procedure: PREOPERATIVE DIAGNOSIS: Dysphagia. Nausea with vomiting. POSTOPERATIVE DIAGNOSIS: Dysphagia. Morbid obesity. Gastrojejunal stricture with chronic ulcer without perforation OPERATION: Esophagogastrojejunoscopy with balloon dilatation from 3 mm to 10 mm. SURGEON: Kylie Montemayor MD ANESTHESIA: MAC. INDICATIONS: The patient is a 50-year-old female who presents with a history of dysphagia, including new-onset nausea and vomiting. Benefits and risks of the procedure were described. Informed consent was obtained. DESCRIPTION: The patient was brought into the endoscopy suite and laid in the left lateral decubitus position. After a timeout was confirmed, the procedure was initiated. An Olympus gastroscope was passed along the posterior oropharynx down to the distal esophagus where the squamocolumnar junction was unremarkable. The gastric pouch was entered. A gastrojejunal stricture of 3 mm was found as the adult gastroscope was 9.5 mm in size. A [employer] balloon dilator was placed through the scope. Final insufflation up to 10 mm was performed with a total of 2 minutes. The scope was advanced up to 60 cm from the incisors into the Richa limb. The mucosa of the gastrojejunal anastomosis was intact. However chronic gastrojejunal marginal ulcer was encountered. No full-thickness injury was encountered. The GI tract was desufflated. The patient tolerated the procedure well. FINDINGS: Squamocolumnar junction unremarkable at 40 cm. Stricture of approximately 3 mm encountered. Chronic gastrojejunal ulceration encountered. Successful balloon dilatation to 10 mm. RECOMMENDATIONS: Repeat upper endoscopy with balloon dilation in 3-4 weeks Plan - Discharge Summary Discharge Rx Participant: Yes New Discharge Prescriptions: New Omeprazole [PriLOSEC] 40 mg PO DAILY #90 cap Discharge Medication List Omeprazole [PriLOSEC] 40 mg PO DAILY #90 cap 02/22/21 [Rx] Follow up Appointment(s)/Ref[place](s[place] [facility] [place] [place] - 03/08/21 Patient Instructions/Handouts: Esophageal Dilation (DC) Discharge Disposition: HOME SELF-CARE
[2021-02-22 11:34] VITALS: BP 117/74; PULSE 59
== END 2021-02-22 12:15 | disposition home or self-care (01) ==
LOC: ORWHC2ENDO 10:05
PROVIDERS: ATTEND Surgery Plastic and Reconstructive Surgery
DX: K22.2 Esophageal obstruction (principal); E66.9 Obesity, unspecified; K21.9 Gastro-esophageal reflux disease without esophagitis; R41.3 Other amnesia; I10 Essential (primary) hypertension; G93.9 Disorder of brain, unspecified; J44.9 Chronic obstructive pulmonary disease, unspecified; G47.33 Obstructive sleep apnea (adult) (pediatric); Z86.16 Personal history of COVID-19; Z91.030 Bee allergy status; Z98.84 Bariatric surgery status; Z83.79 Family history of other diseases of the digestive system; Z87.891 Personal history of nicotine dependence
CPT/HCPCS: 43245; J2001; J2704; C1726

== ENCOUNTER → 2021-03-07 | Outpatient (CLI) | payer MEDICARE ==
[2021-03-07 11:13] LABS: Partial Thromboplastin Time 24.6 sec (22.0-30.0)
[2021-03-07 14:49] LABS: HCT 40.9 % (39.6-50.0); HGB 13.5 g/dL (13.0-17.0); MCH 30.8 pg (27.0-32.0); MCV 93.4 fL (80.0-97.0); Mean Platelet Volume 12.7 fL (9.5-12.2); Platelet Count 114 X 10*3/uL (140-440); RBC 4.38 X 10*6/uL (4.40-5.60); RDW 16.4 % (11.5-14.5); WBC 4.21 X 10*3/uL (4.50-10.00)
[2021-03-07 16:16] LABS: Chol/HDL Ratio 4.43 Ratio; LDL Cholesterol,Calculated 71.9 mg/dL (0.0-131.0)
[2021-03-07 16:17] LABS: % Iron Saturation 23.08 (15.00-50.00); ALT 36 U/L (10-49); AST 32 U/L (14-35); African American GFR (CKD) 94.4 (60.0-200.0); Albumin 4.3 g/dL (3.8-4.9); Albumin/Globulin Ratio 2.34 (1.60-3.17); Alkaline Phosphatase 66 U/L (41-126); BUN/Creat Ratio 8.53 Ratio (12.00-20.00); Calcium 9.2 mg/dL (8.7-10.3); Carbon Dioxide 22.9 mmol/L (20.0-27.5); Chloride 106 mmol/L (96-109); Globulin 1.9 g/dL (1.6-3.3); Glucose 91 mg/dL (70-110); Iron 67 ug/dL (65-175); Magnesium 1.8 mg/dL (1.5-2.4); Non-African American GFR(CKD) 81.4 (60.0-200.0); Phosphorus 2.1 mg/dL (2.4-5.1); Potassium 3.7 mmol/L (3.5-5.5); Prealbumin 15.3 mg/dL (18.0-42.0); Sodium 146 mmol/L (135-145); Total Iron Binding Capacity 291 ug/dL (228-460); Total Protein 6.2 g/dL (6.2-8.2)
[2021-03-08 12:13] LABS: Zinc, Serum 112 ug/dL (60-130)
[2021-03-09 06:09] LABS: Vitamin A 27 ug/dL (38-106)
[2021-03-09 06:18] LABS: Vit B1(Thiamine) 71 ug/L (38-122)
== END | disposition home or self-care (01) ==
LOC: LABWHC1 10:14
PROVIDERS: ATTEND Surgery Plastic and Reconstructive Surgery
DX: E89.1 Postprocedural hypoinsulinemia (principal); E55.9 Vitamin D deficiency, unspecified; E44.0 Moderate protein-calorie malnutrition; N19 Unspecified kidney failure; D50.8 Other iron deficiency anemias; K50.90 Crohn's disease, unspecified, without complications; K74.1 Hepatic sclerosis
CPT/HCPCS: 36415; 80053; 80061; 82306; 82525; 82607; 82728; 82746; 83036; 83540; 83550; 83735; 83970; 84100; 84134; 84255; 84425; 84443; 84590; 84630; 85027; 85610; 85730

== ENCOUNTER 2021-03-13 06:46 | Day surgery (SDC) | payer MEDICARE ==
[2021-03-08 09:31] VITALS: BMI 36.2
[~2021-03-13 06:46] MED LIST changes: +LACTATED RINGERS 1,000 ML IV SCH; -SODIUM CHLORIDE 0.9% 1,000 ML IV NR; -SODIUM CHLORIDE 0.9% 1,000 ML IV SCH; -SODIUM CHLORIDE 0.9% 500 ML 500 ML in EMPTY BAG 1 BAG IV PRN
[2021-03-13 07:13] VITALS: TEMP 97.7
[2021-03-13] MEDS ORDERED: LIDOCAINE 1% (10MG/ML) FOR IV START INTRADERMA ONE (07:15)
[2021-03-13] MEDS ORDERED: LIDOCAINE 1% INJ 10MG/ML (20 ML MDV) ONE (07:40)
[2021-03-13] MEDS ORDERED: KETAMINE 10 MG/ML 20 ML VIAL ONE (07:40)
[2021-03-13] MEDS ORDERED: PROPOFOL 10 MG/ML 20 ML VIAL IV ONE (07:40)
--- NOTE | 2021-03-13 07:43 | P.GSHP ---
History of Present Illness H&P Date: 03/13/21 CHIEF COMPLAINT: Esophageal stricture HISTORY OF PRESENT ILLNESS: The patient is a 50-year-old male who presents reports dysphagia. Upper endoscopy was offered for further evaluation and management. PAST MEDICAL HISTORY: Please see list. PAST SURGICAL HISTORY: Please see list. MEDICATIONS: Please see list. ALLERGIES: Please see list. SOCIAL HISTORY: No illicit drug use FAMILY HISTORY: No reports of Crohn disease or ulcerative colitis. REVIEW OF ORGAN SYSTEMS: CONSTITUTIONAL: No reports of fevers or chills. GI: Denies any blood in stools or constipation. PHYSICAL EXAM: VITAL SIGNS: Stable GENERAL: Well-developed and pleasant in no acute distress. HEENT: No scleral icterus. Extraocular movements grossly intact. Moist buccal mucosa. NECK: Supple without lymphadenopathy. CHEST: Unlabored respirations. Equal bilateral excursions. CARDIOVASCULAR: Regular rate and rhythm. Distal 2+ pulses. ABDOMEN: Soft, nondistended. MUSCULOSKELETAL: No clubbing, cyanosis, or edema. ASSESSMENT: 1. Gastric stricture PLAN: 1. Recommend proceeding with an upper endoscopy with dilation. Past Medical History Past Medical History: GERD/Reflux, Hypertension, Memory Impairment, Sleep Apnea/CPAP/BIPAP Additional Past Medical History / Comment(s): White brain matter disease, short term memory issues. Vertigo. Hx COVID July 2020. CPAP use. History of Any Multi-Drug Resistant Organisms: None Reported Past Surgical History: Bariatric Surgery, Heart Catheterization, Hernia Repair, Orthopedic Surgery Additional Past Surgical History / Comment(s): Umbilical hernia repair, bilateral shoulder arthroscopy(arthritis/bone spurs), right knee meniscus surgery, deviated septum procedure in office d/t nose bleed, colonoscopy X3 (has this performed q5 years d/t precancerous polyps), bilateral hand surgery. Bypass 01/13/21. Past Anesthesia/Blood Transfusion Reactions: No Reported Reaction Additional Past Anesthesia/Blood Transfusion Reaction / Comment(s): Vertigo. No blood transfusion to date. Smoking Status: Former smoker - Past Family History Mother Additional Family Medical History / Comment(s): Hypoglycemia, dizzy spells. Father Family Medical History: Diabetes Mellitus Additional Family Medical History / Comment(s): Type 2 DM. Sister(s) Additional Family Medical History / Comment(s): sister #1: Chrohn's Disease. Sister #2,3,&4: stomach problems Medications and Allergies Home Medications Medication Instructions Recorded Confirmed Type Omeprazole [PriLOSEC] 40 mg PO DAILY #90 cap 02/22/21 03/13/21 Rx Allergies Allergy/AdvReac Type Severity Reaction Status Date / Time bee venom protein (honey bee) Allergy Unknown Verified 03/13/21 07:09 Surgical - Exam Vital Signs Temp Pulse Resp BP Pulse Ox 97.7 F 56 L 18 132/75 100 03/13/21 07:11 03/13/21 07:11 03/13/21 07:11 03/13/21 07:11 03/13/21 07:11
--- NOTE | 2021-03-13 07:57 | P.PCN ---
Date of Procedure: 03/13/21 Description of Procedure: PREOPERATIVE DIAGNOSIS: Dysphagia. Nausea with vomiting. POSTOPERATIVE DIAGNOSIS: Dysphagia. Morbid obesity. Gastrojejunal stricture with chronic ulcer without perforation OPERATION: Esophagogastrojejunoscopy with balloon dilatation from 8 mm to 15 mm. SURGEON: Kylie Montemayor MD ANESTHESIA: MAC. INDICATIONS: The patient is a 50-year-old male who presents with a history of dysphagia, including new-onset nausea and vomiting. Benefits and risks of the procedure were described. Informed consent was obtained. DESCRIPTION: The patient was brought into the endoscopy suite and laid in the left lateral decubitus position. After a timeout was confirmed, the procedure was initiated. An Olympus gastroscope was passed along the posterior oropharynx down to the distal esophagus where the squamocolumnar junction was unremarkable. The gastric pouch was entered. A gastrojejunal stricture of 8 mm was found as the adult gastroscope was 9.5 mm in size. A [employer] balloon dilator was placed through the scope. Final insufflation up to 15 mm was performed with a total of 2 minutes. The scope was advanced up to 60 cm from the incisors into the Richa limb. The mucosa of the gastrojejunal anastomosis was intact. However chronic gastrojejunal marginal ulcer was encountered. No full-thickness injury was encountered. The GI tract was desufflated. The patient tolerated the procedure well. FINDINGS: Squamocolumnar junction unremarkable at 40 cm. Stricture of approximately 8 mm encountered. Chronic gastrojejunal ulceration encountered. Successful balloon dilatation to 15 mm. RECOMMENDATIONS: Repeat upper endoscopy with balloon dilation in 3-4 weeks Plan - Discharge Summary Discharge Rx Participant: No New Discharge Prescriptions: No Action Omeprazole [PriLOSEC] 40 mg PO DAILY #90 cap Discharge Medication List Omeprazole [PriLOSEC] 40 mg PO DAILY #90 cap 02/22/21 [Rx] Follow up Appointment(s[facility]Ref[place](s[place] [facility] [place] - 03/22/21 Patient Instructions/Handouts: *[facility] - (Anesthesia) Endoscopy Discharge Instructions Discharge Disposition: HOME SELF-CARE
[2021-03-13 08:04] VITALS: RESP 16
[2021-03-13 08:38] VITALS: BP 133/83; PULSE 54
== END 2021-03-13 09:14 | disposition home or self-care (01) ==
LOC: ORWHC2ENDO 06:46
PROVIDERS: ATTEND Surgery Plastic and Reconstructive Surgery
DX: K95.89 Other complications of other bariatric procedure (principal); R13.10 Dysphagia, unspecified; K28.9 Gastrojejunal ulcer, unspecified as acute or chronic, without hemorrhage or perforation; K21.9 Gastro-esophageal reflux disease without esophagitis; I10 Essential (primary) hypertension; R41.3 Other amnesia; G47.30 Sleep apnea, unspecified; R90.82 White matter disease, unspecified; R42 Dizziness and giddiness; Z86.16 Personal history of COVID-19; Z98.890 Other specified postprocedural states; Z87.891 Personal history of nicotine dependence; Z83.3 Family history of diabetes mellitus; Z83.49 Family history of other endocrine, nutritional and metabolic diseases; Z83.79 Family history of other diseases of the digestive system; Z79.899 Other long term (current) drug therapy; Z91.030 Bee allergy status
CPT/HCPCS: 43245; J2001; J2704; C1727

== ENCOUNTER 2021-06-05 09:02 | Day surgery (SDC) | payer MEDICARE ==
[2021-05-31 12:22] VITALS: BMI 32.1
--- NOTE | 2021-06-05 07:55 | P.GSHP ---
History of Present Illness H&P Date: 06/05/21 CHIEF COMPLAINT: GERD HISTORY OF PRESENT ILLNESS: The patient is a 51-year-old male who presents reports gastroesophageal reflux disease. Upper endoscopy was offered for further evaluation and management. PAST MEDICAL HISTORY: Please see list. PAST SURGICAL HISTORY: Please see list. MEDICATIONS: Please see list. ALLERGIES: Please see list. SOCIAL HISTORY: No illicit drug use FAMILY HISTORY: No reports of Crohn disease or ulcerative colitis. REVIEW OF ORGAN SYSTEMS: CONSTITUTIONAL: No reports of fevers or chills. GI: Denies any blood in stools or constipation. PHYSICAL EXAM: VITAL SIGNS: Stable GENERAL: Well-developed and pleasant in no acute distress. HEENT: No scleral icterus. Extraocular movements grossly intact. Moist buccal mucosa. NECK: Supple without lymphadenopathy. CHEST: Unlabored respirations. Equal bilateral excursions. CARDIOVASCULAR: Regular rate and rhythm. Distal 2+ pulses. ABDOMEN: Soft, nondistended. MUSCULOSKELETAL: No clubbing, cyanosis, or edema. ASSESSMENT: 1. Gastroesophageal reflux disease PLAN: 1. Recommend proceeding with an upper endoscopy Past Medical History Past Medical History: GERD/Reflux, Hypertension, Memory Impairment, Sleep Apnea/CPAP/BIPAP Additional Past Medical History / Comment(s): White brain matter disease, short term memory issues. Vertigo. Hx COVID July 2020. CPAP use. History of Any Multi-Drug Resistant Organisms: None Reported Past Surgical History: Bariatric Surgery, Heart Catheterization, Hernia Repair, Orthopedic Surgery Additional Past Surgical History / Comment(s): Umbilical hernia repair, bilateral shoulder arthroscopy(arthritis/bone spurs), right knee meniscus surgery, deviated septum procedure in office d/t nose bleed, colonoscopy X3 (has this performed q5 years d/t precancerous polyps), bilateral hand surgery. Bypass 01/13/21. EGD Past Anesthesia/Blood Transfusion Reactions: No Reported Reaction Additional Past Anesthesia/Blood Transfusion Reaction / Comment(s): Vertigo. No blood transfusion to date. Smoking Status: Former smoker - Past Family History Mother Additional Family Medical History / Comment(s): Hypoglycemia, dizzy spells. Father Family Medical History: Diabetes Mellitus Additional Family Medical History / Comment(s): Type 2 DM. Sister(s) Additional Family Medical History / Comment(s): sister #1: Chrohn's Disease. Sister #2,3,&4: stomach problems Medications and Allergies Home Medications Medication Instructions Recorded Confirmed Type Omeprazole [PriLOSEC] 40 mg PO DAILY #90 cap 02/22/21 05/31/21 Rx Sucralfate [Carafate] 1 gm PO BID #30 tablet 03/13/21 05/31/21 Rx Allergies Allergy/AdvReac Type Severity Reaction Status Date / Time bee venom protein (honey bee) Allergy Unknown Verified 05/31/21 12:17
[~2021-06-05 09:02] MED LIST changes: +LIDOCAINE 1% (10MG/ML) FOR IV START INTRADERMA PRN
[2021-06-05 09:18] VITALS: TEMP 97.8
[2021-06-05] MEDS ORDERED: LACTATED RINGERS 1,000 ML IV ONE (09:18)
[2021-06-05] MEDS ORDERED: LIDOCAINE 1% INJ 10MG/ML (20 ML MDV) ONE (09:28)
[2021-06-05] MEDS ORDERED: PROPOFOL 10 MG/ML 20 ML VIAL IV ONE (09:28)
--- NOTE | 2021-06-05 09:44 | P.PCN ---
Date of Procedure: 06/05/21 Description of Procedure: PREOPERATIVE DIAGNOSES: 1. Epigastric abdominal pain. 2. Nausea and vomiting. 3. History of gastric ulcers. POSTOPERATIVE DIAGNOSES: 1. Gastrojejunal ulcers, acute on chronic stricture PROCEDURE PERFORMED: Esophagogastrojejunoscopy with cold forceps biopsies SURGEON: Kylie Montemayor MD ANESTHESIA: MAC. INDICATIONS: The patient is a 51-year-old male with prior history of Richa-en-Y gastric bypass. He has had intermittent nausea and vomiting, particularly of the epigastric abdominal pain. With his history of Richa-en-Y gastric bypass, upper endoscopy was offered for further evaluation and management. DESCRIPTION: Patient was brought to the endoscopy suite and laid in the left lateral decubitus position. After adequate IV sedation, a bite block was placed. An Olympus gastroscope was passed along the posterior oropharynx down to the distal esophagus where the squamocolumnar junction was found at approximately 40 cm from the incisors. Gastric pouch less than 5 cm. The scope was advanced 50 cm from the incisors. Large acute on chronic gastrojejunal ulcerations 3 were encountered. Cold forceps biopsies obtained of gastric pouch. The GI tract was desufflated. The patient tolerated the procedure well. FINDINGS: 1. Multiple large gastrojejunal ulcerations without perforation or hemorrhage 2. Cold forceps biopsies obtained of gastric pouch 3. Gastrojejunal stricture of 10 mm. PLAN: 1. Carafate 1 g twice a day for 4-6 weeks 2. Omeprazole 40 mg twice a day for 4-6 week 3. Repeat upper endoscopy in 4 weeks for dilation Plan - Discharge Summary Discharge Rx Participant: No New Discharge Prescriptions: New Sucralfate [Carafate] 1 gm PO BID #120 tablet Omeprazole [PriLOSEC] 40 mg PO DAILY #90 cap Discontinued Omeprazole [PriLOSEC] 40 mg PO DAILY #90 cap Sucralfate [Carafate] 1 gm PO BID #30 tablet Discharge Medication List Omeprazole [PriLOSEC] 40 mg PO DAILY #90 cap 06/05/21 [Rx] Sucralfate [Carafate] 1 gm PO BID #120 tablet 06/05/21 [Rx] Follow up Appointment(s)/Referral(s): [facility] [place] - 06/07/21 Patient Instructions/Handouts: Peptic Ulcer (ED), Diet for Stomach Ulcers and Gastritis (ED), Complete Blenderized Diet (DC) Activity/Diet/Wound Care/Special Instructions: Recommend blenderized or pureed foods. Discharge Disposition: HOME SELF-CARE
[2021-06-05 09:45] VITALS: RESP 16
[2021-06-05 09:59] VITALS: BP 123/77; PULSE 54
== END 2021-06-05 10:44 | disposition home or self-care (01) ==
LOC: ORWHC2ENDO 09:02
PROVIDERS: ATTEND Surgery Plastic and Reconstructive Surgery
DX: K91.89 Other postprocedural complications and disorders of digestive system (principal); K31.9 Disease of stomach and duodenum, unspecified; K21.9 Gastro-esophageal reflux disease without esophagitis; K29.50 Unspecified chronic gastritis without bleeding; K28.9 Gastrojejunal ulcer, unspecified as acute or chronic, without hemorrhage or perforation; G47.33 Obstructive sleep apnea (adult) (pediatric); R42 Dizziness and giddiness; I10 Essential (primary) hypertension; R41.3 Other amnesia; R90.82 White matter disease, unspecified; Z86.16 Personal history of COVID-19; Z98.890 Other specified postprocedural states; Z95.1 Presence of aortocoronary bypass graft; Z87.891 Personal history of nicotine dependence; Z84.89 Family history of other specified conditions; Z83.3 Family history of diabetes mellitus; Z83.79 Family history of other diseases of the digestive system; Z79.899 Other long term (current) drug therapy; Z91.030 Bee allergy status
CPT/HCPCS: 88305; 43239; J2001; J2704

== ENCOUNTER → 2021-06-28 | Outpatient (CLI) | payer MEDICARE ==
--- NOTE | 2021-06-28 14:56 | P.BASOAP ---
Subjective Progress Note Date: 06/28/21 He has lost 100 pounds in 6 months. Reports swallowing is fine. He is very active. Re-do EGD last week of June. Needs labs. Last labs reviewed from Feb 2021. Assessment/Plan Plan: Date: Initial Weight: 147.418 kg Initial BMI: Current Weight: Current BMI: Type of Surgery: Total Volume in Band: Previous Volume: Volume Removed: Volume Added: Band Size:
[2021-06-28 14:59] VITALS: BP 155/90; PULSE 48; RESP 16; TEMP 98; BMI 31.1
[2021-06-28 16:56] LABS: Partial Thromboplastin Time 25.6 sec (22.0-30.0); Prothrombin Time 10.8 sec (9.0-12.0)
[2021-06-29] LABS: Chol/HDL Ratio 3.27 Ratio; LDL Cholesterol,Calculated 68.2 mg/dL (0.0-131.0)
[2021-06-29 00:06] LABS: % Iron Saturation 20.78 (15.00-50.00); ALT 19 U/L (10-49); AST 23 U/L (14-35); African American GFR (CKD) 93.7 (60.0-200.0); Albumin 4.4 g/dL (3.8-4.9); Albumin/Globulin Ratio 2.38 (1.60-3.17); Alkaline Phosphatase 87 U/L (41-126); BUN/Creat Ratio 8.08 Ratio (12.00-20.00); Blood Urea Nitrogen 8.6 mg/dL (9.0-27.0); Calcium 9.1 mg/dL (8.7-10.3); Carbon Dioxide 23.9 mmol/L (20.0-27.5); Chloride 106 mmol/L (96-109); Globulin 1.8 g/dL (1.6-3.3); Glucose 93 mg/dL (70-110); Iron 64 ug/dL (65-175); Non-African American GFR(CKD) 80.9 (60.0-200.0); Phosphorus 3.2 mg/dL (2.4-5.1); Potassium 3.6 mmol/L (3.5-5.5); Sodium 145 mmol/L (135-145); Total Iron Binding Capacity 308 ug/dL (228-460); Total Protein 6.2 g/dL (6.2-8.2)
[2021-06-29 01:53] LABS: HCT 41.1 % (39.6-50.0); HGB 13.9 g/dL (13.0-17.0); MCHC 33.8 g/dL (32.0-37.0); MCV 94.7 fL (80.0-97.0); Mean Platelet Volume 13.1 fL (9.5-12.2); NRBC Per 100 WBC 0 /100 WBCS (0.0-0.0); Platelet Count 112 X 10*3/uL (140-440); RBC 4.34 X 10*6/uL (4.40-5.60); RDW 14.6 % (11.5-14.5)
[2021-06-29 12:44] LABS: Zinc, Serum 80 ug/dL (60-130)
[2021-06-30 08:13] LABS: Vit B1(Thiamine) 75 ug/L (38-122)
[2021-06-30 12:37] LABS: Vitamin A 34 ug/dL (38-106)
== END ==
LOC: BARWHC3 14:12
PROVIDERS: ATTEND Surgery Plastic and Reconstructive Surgery
DX: E66.01 Morbid (severe) obesity due to excess calories (principal); D50.8 Other iron deficiency anemias; D50.9 Iron deficiency anemia, unspecified; K90.89 Other intestinal malabsorption; K90.9 Intestinal malabsorption, unspecified; E55.9 Vitamin D deficiency, unspecified; N19 Unspecified kidney failure; T56.894A Toxic effect of other metals, undetermined, initial encounter; K74.1 Hepatic sclerosis; K50.90 Crohn's disease, unspecified, without complications
CPT/HCPCS: 84255; 84134; 84425; 80061; 80053; 82607; 82728; 82525; 82746; 83540; 83550; 83735; 84100; 84443; 84590; 84630; 85027; 85610; 85730; 82306; 83970; 83036; 97803; G0463; 99211

== ENCOUNTER → 2021-07-10 | Day surgery (SDC) | payer MEDICARE ==
[2021-07-05 15:51] VITALS: BMI 32.6
[~2021-07-10] MED LIST changes: +LACTATED RINGERS 1,000 ML BAG IV ONE; -LACTATED RINGERS 1,000 ML IV SCH; -LIDOCAINE 1% (10MG/ML) FOR IV START INTRADERMA PRN; +LIDOCAINE 1% INJ 10MG/ML (20 ML MDV) ONE; +MIDAZOLAM 2 MG/2 ML VIAL ONE; +PROPOFOL 10 MG/ML 20 ML VIAL IV ONE; +fentaNYL (PF) 50 MCG/ML 2 ML AMP ONE
--- NOTE | 2021-07-10 20:44 | P.GSHP ---
History of Present Illness H&P Date: 07/10/21 CHIEF COMPLAINT: GERD HISTORY OF PRESENT ILLNESS: The patient is a 51-year-old male who presents reports gastroesophageal reflux disease. Upper endoscopy was offered for further evaluation and management. PAST MEDICAL HISTORY: Please see list. PAST SURGICAL HISTORY: Please see list. MEDICATIONS: Please see list. ALLERGIES: Please see list. SOCIAL HISTORY: No illicit drug use FAMILY HISTORY: No reports of Crohn disease or ulcerative colitis. REVIEW OF ORGAN SYSTEMS: CONSTITUTIONAL: No reports of fevers or chills. GI: Denies any blood in stools or constipation. PHYSICAL EXAM: VITAL SIGNS: Stable GENERAL: Well-developed and pleasant in no acute distress. HEENT: No scleral icterus. Extraocular movements grossly intact. Moist buccal mucosa. NECK: Supple without lymphadenopathy. CHEST: Unlabored respirations. Equal bilateral excursions. CARDIOVASCULAR: Regular rate and rhythm. Distal 2+ pulses. ABDOMEN: Soft, nondistended. MUSCULOSKELETAL: No clubbing, cyanosis, or edema. ASSESSMENT: 1. Gastroesophageal reflux disease PLAN: 1. Recommend proceeding with an upper endoscopy Past Medical History Past Medical History: GERD/Reflux, Hypertension, Memory Impairment, Sleep Apnea/CPAP/BIPAP Additional Past Medical History / Comment(s): White brain matter disease, short term memory issues. Vertigo. Hx COVID July 2020. CPAP NOT USED ANYMORE, HX STOMACH ULCERS History of Any Multi-Drug Resistant Organisms: None Reported Past Surgical History: Bariatric Surgery, Heart Catheterization, Hernia Repair, Orthopedic Surgery Additional Past Surgical History / Comment(s): Umbilical hernia repair, bilateral shoulder arthroscopy(arthritis/bone spurs), right knee meniscus surgery, deviated septum procedure in office d/t nose bleed, colonoscopy X3 (has this performed q5 years d/t precancerous polyps), bilateral hand surgery. Bypass 01/13/21. EGD Past Anesthesia/Blood Transfusion Reactions: No Reported Reaction Additional Past Anesthesia/Blood Transfusion Reaction / Comment(s): Vertigo. No blood transfusion to date. Smoking Status: Former smoker - Past Family History Mother Additional Family Medical History / Comment(s): Hypoglycemia, dizzy spells. Father Family Medical History: Diabetes Mellitus Additional Family Medical History / Comment(s): Type 2 DM. Sister(s) Additional Family Medical History / Comment(s): sister #1: Chrohn's Disease. Sister #2,3,&4: stomach problems Medications and Allergies Home Medications Medication Instructions Recorded Confirmed Type Omeprazole [PriLOSEC] 40 mg PO BID #120 cap 06/05/21 07/05/21 Rx Sucralfate [Carafate] 1 gm PO BID #120 tablet 06/05/21 07/05/21 Rx Allergies Allergy/AdvReac Type Severity Reaction Status Date / Time bee venom protein (honey bee) Allergy Unknown Verified 07/05/21 15:45
--- NOTE | 2021-07-10 20:47 | P.PCN ---
Date of Procedure: 07/10/21 Description of Procedure: PREOPERATIVE DIAGNOSIS: Dysphagia. Gastrojejunal stricture with chronic ulcer POSTOPERATIVE DIAGNOSIS: Dysphagia. Gastrojejunal stricture without chronic ulcer without perforation OPERATION: Esophagogastrojejunoscopy with balloon dilatation from 12 to 20 mm. SURGEON: Kylie Montemayor MD ANESTHESIA: MAC. INDICATIONS: The patient is a 51-year-old male who presents with a history of dysphagia and ulcers. Benefits and risks of the procedure were described. Informed consent was obtained. DESCRIPTION: The patient was brought into the endoscopy suite and laid in the left lateral decubitus position. After a timeout was confirmed, the procedure was initiated. An Olympus gastroscope was passed along the posterior oropharynx down to the distal esophagus where the squamocolumnar junction was unremarkable. The gastric pouch was entered. A gastrojejunal stricture of 12 mm was found as the adult gastroscope was 9.5 mm in size. A Selo Reserva balloon dilator was placed through the scope. Final insufflation up to 20 mm was performed with a total of 2 minutes. The scope was advanced up to 60 cm from the incisors into the Richa limb. The mucosa of the gastrojejunal anastomosis was intact. Resolved chronic gastrojejunal marginal ulcer was encountered. No full-thickness injury was encountered. The GI tract was desufflated. The patient tolerated the procedure well. FINDINGS: Squamocolumnar junction unremarkable at 40 cm. Stricture of approximately 12 mm encountered. Resolved chronic gastrojejunal ulceration encountered. Successful balloon dilatation to 20 mm. Gastric pouch 10 cm. RECOMMENDATIONS: Continue omeprazole Plan - Discharge Summary Discharge Rx Participant: No New Discharge Prescriptions: Continue Sucralfate [Carafate] 1 gm PO BID #120 tablet Omeprazole [PriLOSEC] 40 mg PO BID #120 cap Discharge Medication List Omeprazole [PriLOSEC] 40 mg PO BID #120 cap 06/05/21 [Rx] Sucralfate [Carafate] 1 gm PO BID #120 tablet 06/05/21 [Rx] [facility] [place] - As Needed Patient Instructions/Handouts: Esophageal Dilation (DC) Discharge Disposition: HOME SELF-CARE
== END | disposition home or self-care (01) ==
LOC: ORWHC2ENDO 07:23
PROVIDERS: ATTEND Surgery Plastic and Reconstructive Surgery
DX: K31.4 Gastric diverticulum (principal); K21.9 Gastro-esophageal reflux disease without esophagitis; G47.30 Sleep apnea, unspecified; I10 Essential (primary) hypertension; Z83.3 Family history of diabetes mellitus; Z86.16 Personal history of COVID-19; Z87.891 Personal history of nicotine dependence; Z91.030 Bee allergy status
CPT/HCPCS: 43239; J2250; J2001; J3010; J2704

== ENCOUNTER → 2022-01-31 | Outpatient (CLI) | payer MEDICARE ==
[2022-01-31 14:44] VITALS: BP 152/77; PULSE 60; TEMP 97.7; BMI 28.7
--- NOTE | 2022-01-31 15:15 | P.BASOAP ---
Subjective Progress Note Date: 01/31/22 No further dysphagia. He is happy with weight loss. Skin removal advised. He has stomach skin that needs removal. Objective - Vital Signs Vital signs: Vital Signs Temp 97.7 F 01/31/22 14:41 Pulse 60 01/31/22 14:41 Resp BP 152/77 01/31/22 14:41 Pulse Ox FiO2 Intake & Output 01/30/22 01/31/22 01/31/22 18:59 06:59 18:59 Weight 93.44 kg Assessment/Plan Plan: Date: 01/31/22 Initial Weight: 147.418 kg Initial BMI: 45.3 Current Weight: 93.44 kg Current BMI: 28.7 Type of Surgery: Total Volume in Band: Previous Volume: Volume Removed: Volume Added: Band Size:
[2022-01-31 16:26] LABS: Prothrombin Time 10.7 sec (9.0-12.0)
[2022-01-31 23:06] LABS: HCT 44.4 % (39.6-50.0); HGB 14.6 g/dL (13.0-17.0); MCHC 32.9 g/dL (32.0-37.0); MCV 100.2 fL (80.0-97.0); NRBC Per 100 WBC 0 /100 WBCS (0.0-0.0); Platelet Count 113 X 10*3/uL (140-440); RBC 4.43 X 10*6/uL (4.40-5.60); RDW 13.6 % (11.5-14.5); WBC 4.64 X 10*3/uL (4.50-10.00)
[2022-01-31 23:59] LABS: % Iron Saturation 18.07 (15.00-50.00); ALT 20 U/L (10-49); AST 23 U/L (14-35); Albumin 4.4 g/dL (3.8-4.9); Albumin/Globulin Ratio 2.39 (1.60-3.17); Alkaline Phosphatase 93 U/L (41-126); BUN/Creat Ratio 15.44 Ratio (12.00-20.00); Blood Urea Nitrogen 15.9 mg/dL (9.0-27.0); Calcium 9.1 mg/dL (8.7-10.3); Carbon Dioxide 28.2 mmol/L (20.0-27.5); Chloride 107 mmol/L (96-109); Ferritin 98.3 ng/mL (22.0-322.0); Globulin 1.9 g/dL (1.6-3.3); Glucose 80 mg/dL (70-110); Iron 64 ug/dL (65-175); Magnesium 2.1 mg/dL (1.5-2.4); Non-African American GFR(CKD) 83.7 (60.0-200.0); Phosphorus 4.2 mg/dL (2.4-5.1); Potassium 4.1 mmol/L (3.5-5.5); Sodium 145 mmol/L (135-145); Total Iron Binding Capacity 351 ug/dL (228-460); Total Protein 6.3 g/dL (6.2-8.2)
[2022-02-01 00:05] LABS: Chol/HDL Ratio 3.09 Ratio; LDL Cholesterol,Calculated 76.4 mg/dL (0.0-131.0); Prealbumin 20.4 mg/dL (18.0-42.0)
[2022-02-01 13:23] LABS: Zinc, Serum 61 ug/dL (60-130)
[2022-02-02 06:14] LABS: Vitamin A 45 ug/dL (38-106)
[2022-02-02 13:00] LABS: Vit B1(Thiamine) 84 ug/L (38-122)
== END ==
LOC: BARWHC3 14:10
PROVIDERS: ATTEND Surgery Plastic and Reconstructive Surgery
DX: E66.01 Morbid (severe) obesity due to excess calories (principal); D50.8 Other iron deficiency anemias; E89.1 Postprocedural hypoinsulinemia; K90.89 Other intestinal malabsorption; E55.9 Vitamin D deficiency, unspecified; K74.1 Hepatic sclerosis; N19 Unspecified kidney failure; T56.894A Toxic effect of other metals, undetermined, initial encounter; K50.90 Crohn's disease, unspecified, without complications; Z91.030 Bee allergy status; Z87.891 Personal history of nicotine dependence; Z68.28 Body mass index [BMI] 28.0-28.9, adult
CPT/HCPCS: 84255; 84134; 84425; 80061; 80053; 82607; 82728; 82525; 82746; 83540; 83550; 83735; 84100; 84443; 84590; 84630; 85027; 85610; 85730; 82306; 83970; 83036; G0463; 99211